=== PATIENT | female | born 1995 | race Caucasian/White ===

== ENCOUNTER 2017-05-04 03:35 | Emergency (ER) | payer BC, OTHER ==
[~2017-05-04] VITALS: Ht 167.6 cm; Wt 136.1 kg
[~2017-05-04 03:35] MED LIST: BIRTH CONTROL; CITA10TA PO; PRED10TA PO
--- OUTSIDE RECORDS SUMMARY | 2017-05-04 03:43 | XMS REPORT | Continuity of Care Document ---
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 Phone [employer] Unavailable Unavailable Problems Medications Medication Details Route Status Patient Instructions Ordering Provider Order Date Source Celexa 20 mg oral tablet PO Active [facility] 12/14/2013 [facility] BuSpar 10 mg oral tablet PO Active [facility] 12/14/2013 [facility] Flexeril 5 mg oral tablet Active one - two tablets at night prn for muscle tension STONE 12/21/2012 [facility] Ambien 5 mg oral tablet PO Active 1/2 - 1 at bedtime STONE 12/21/2012 [facility] Loestrin FE 1.5/30 oral tablet PO Active start on Friday12/07/2012 [facility] BuSpar 10 mg oral tablet PO Discontinued [facility] 11/25/2012 [facility] BuSpar 5 mg oral tablet PO Discontinued STONE 11/25/2012 [facility] Ambien 10 mg oral tablet PO Discontinued STONE 11/25/2012 [facility] Bactrim DS 800 mg-160 mg oral tablet PO Completed REMY 02/06/2012 [facility] Ambien 10 mg oral tablet PO Completed REMY 02/06/2012 [facility] Zoloft 50 mg oral tablet PO Completed REMY 02/06/2012 [facility] mouth piece for nebulizer Active as needed 01/21/2012 [facility] Supplies for nebulizer including tubing and mouth piece Discontinued as needed 01/20/2012 [facility] Xopenex 1.25 mg/3 mL inhalation solution NEB Active Please dispense with tubing. REMY 01/20/2012 [facility] Augmentin 875 mg oral tablet PO Completed REMY 01/20/2012 [facility] predniSONE 20 mg oral tablet Completed 3 tabs (60 mg) once daily days 1-3; 2 tabs (40 mg) once daily days 4-6: 1 tab (20 mg) daily days 7-9 BRYCE 12/12/2011 [facility] Loestrin FE 1.5/30 oral tablet PO Discontinued start on Federico STONE 11/15/2011 [facility] Loestrin FE 1.5/30 oral tablet PO Discontinued REMY 11/15/2011 [facility] predniSONE 20 mg oral tablet Completed start 09/20 3 TABS PO once daily days 1-2; 2 tabs po daily days 3-5; 1 tab once daily days 6- 8 BRYCE 09/20/2011 [facility] Mobic 15 mg oral tablet PO Completed REMY 08/13/2011 [facility] Xopenex 1.25 mg/3 mL inhalation solution NEB Completed REMY 02/11/2011 [facility] NEBULIZER with tubing and mouthpiece Completed use every 4-6 hrs prn. RMEY 02/11 [facility] Promethazine with Codeine oral syrup PO Completed REMY 02/11/2011 [facility] Augmentin 875 mg oral tablet PO Completed REMY 02/11/2011 [facility] Nyquil Cold & Flu oral capsule PO Completed 02/11/2011 [facility] predniSONE 20 mg oral tablet Completed 3 tabs daily for 3 days, 2 tabs daily for 3 days, 1 tab daily for 3 days REMY 08/31/2010 [facility] Medrol Dosepak 4 mg oral tablet Completed as directed on package labeling REMY [facility] Xopenex 1.25 mg/3 mL inhalation solution NEB Discontinued INFORMATION 01/16/2010 [facility] Xopenex HFA 45 mcg/inh inhalation aerosol with adapter INH Discontinued INFORMATION 01/16/2010 [facility] Veramyst 27.5 mcg/inh nasal spray each nostril Completed REMY 01/12/2010 [facility] Augmentin 875 mg oral tablet PO Completed REMY 01/12/2010 [facility] ibuprofen Discontinued 01/12/2010 [facility] amoxicillin 500 mg oral tablet PO Completed REMY 11/27/2009 [facility] Ciloxan 0.3% ophthalmic solution OS Completed REMY 11/27/2009 [facility] albuterol 90 mcg/inh inhalation aerosol with adapter INH Completed BRYCE 07/25/2008 [facility] Xopenex Concentrate Completed 07/14/2007 [facility] Pulmicort Respules Completed NEB 07/14/2007 [facility] Allergies, Adverse Reactions, Alerts Immunizations Immunization Date Given Site Status Last Updated Comments Source meningococcal conjugate vaccine 11/25/2012 Right Deltoid completed JUAN [facility] no immunization 11/25/2012 Immunization, History IN ERROR [facility] diphtheria/pertussis, acellular/tetanus 07/14/2007 Immunization, History completed [facility] Results Order Name Results Value Reference Range Date Interpretation Comments Source Office/Clinic Notes Office/Clinic Notes Patient: KATE SAGE Age: 18 years Sex: Female : 1995 Associated Diagnoses: None Author: Wendy Nunez, MICA Visit Information Visit type: New symptom. Accompanied by: No one. Source of history: Self. Chief Complaint Kate present today for medication consult and refills History of Present Illness The patient presents with medication consult and refills. Patient has noticed that her control has been changing through the pharmacy, pill packs are different color each month. During this time has noticed breakthrough bleeding consistently for the past few months. Typically has bleeding during the first and third weeks of her pill pack. Not currently sexually active. Stopped taking buspar May through August, felt like her anxiety got much worse. Started taking buspar again a few months ago and is struggling with associated nausea. Is still having some anxiety attacks with the buspar. Is happening twice per week. Anxiety improved since restarting the buspar, but still struggles. Review of Systems Constitutional: No fever, No chills, No weight gain, No weight loss. Respiratory: Negative. Cardiovascular: Negative. Gastrointestinal: Nausea, No vomiting. Gynecologic: Last menstrual period: 12/09/2013, Intermenstrual bleeding, has period twice per month usually for 1-2 days of spotting and other times will having bleeding for a full week, No vaginal discharge, Denies vaginal odor, Denies vaginal itching. Neurologic: Alert and oriented X4, No headache. Psychiatric: Anxiety, No depression. ROS reviewed as documented in chart Health Status Allergies: Allergic Reactions (All) Severity Not Documented Zithromax- Rash. Current medications: (Selected) Prescriptions Prescribed BuSpar 10 mg oral tablet: 1 Tab, PO, BID, 60 Tab Flexeril 5 mg oral tablet: See Instructions, one - two tablets at night prn for muscle tension, 30 Tab Loestrin FE 1.5/30 oral tablet: 1 Tab, PO, daily, PT NEEDS TO BE SEEN BY DR. NEGRO BEFORE ANY FURTHER REFILLS., 28 Tab Xopenex 1.25 mg/3 mL inhalation solution: 1.25 mg, 3 mL, NEB, TID, Please dispense with tubing., 1 BX mouth piece for nebulizer: See Instructions, as needed, 1 EA, BuSpar 10 mg oral tablet (buspirone), 10 mg, 2 times a day Flexeril 5 mg oral tablet (cyclobenzaprine), one - two tablets at night prn for muscle tension Loestrin FE 1.5/30 oral tablet (ethinyl estradiol-norethindrone), 1 Tab, Daily mouth piece for nebulizer (Miscellaneous Medication), as needed Xopenex 1.25 mg/3 mL inhalation solution (Resp-Levalbuterol), 1.25 mg, 3 times a day Problem list: Medical Obesity / ICD-9-CM 278.00 / Confirmed Insomnia / ICD-9-CM 780.52 / Confirmed Anxiety - Generalized Disorder / ICD-9-CM 300.02 / Confirmed Histories Past Medical History: No active or resolved past medical history items have been selected or recorded. Family History: Family History Negative: Procedure History: Arthroscopy, shoulder, surgical; debridement, limited (34439) in 2009 at 14 Years. Social History Alcohol Use Alcohol Use: Denies Caffeine Use Caffeine Use: Current Caffeine Frequency: Weekly Current Tobacco Usage: Denies Education: High school Recreational Drug Use Recreational Drug Use: Denies . Physical Examination VS/Measurements Vital Signs 12/14/13 11:28 Temperature Tympanic 36.4 DegC LOW Peripheral Pulse Rate 62 bpm Respiratory Rate 20 br/min Systolic Blood Pressure 112 mmHg Diastolic Blood Pressure 82 mmHg Mean Arterial Pressure. 92 mmHg Blood Pressure Type Manual Blood Pressure Location Left arm , Measurements from flowsheet : Measurements 12/14/13 11:28 Height 170 cm Weight 106.9 kg Scale Balance BSA 2.2468 m2 Body Mass Index 37 kg/m2 BMI Percentile 97.95 General: Alert and oriented, No acute distress. Appearance: Within normal limits. Behavior: Within normal limits. Skin: Within normal limits. Eye: Pupils are equal, round and reactive to light, Normal conjunctiva. HENT: Normocephalic, Tympanic membranes are clear, Oral mucosa is moist, No pharyngeal erythema. Neck: Supple, Non-tender, No lymphadenopathy. Respiratory: Lungs are clear to auscultation, Respirations are non-labored, Breath sounds are equal, Symmetrical chest wall expansion. Cardiovascular: Normal rate, Regular rhythm. Gastrointestinal: Soft, Non-tender, Non-distended, Normal bowel sounds. Integumentary: Warm, Dry, [place], No rash. Psychiatric: Cooperative, Appropriate mood & affect. Review / Management Results review: Lab results: 12/14/2013 12:05 U beta hCG Ql Negative . Impression and Plan Diagnosis Contraceptive management (ICD9 V25.9). Breakthrough bleeding on control pills (ICD9 626.6). Anxiety (ICD9 300.00). Course: Not improving. Orders Orders (Selected) Prescriptions Prescribed BuSpar 10 mg oral tablet: 1 Tab, PO, BID, 60 Tab Celexa 20 mg oral tablet: 1 Tab, PO, daily, 30 Tab Ortho Tri-Cyclen 35 mcg oral tablet: 1 Tab, PO, daily, 28 Tab. Change contraception pill to see if improvement in breakthrough bleeding. Start on SSRI to help with anxiety, may consider cutting back on buspar as patient struggling with nausea since restarting the medication. Also discussed using SSRI in addition to buspar for better control of anxiety - will see if nausea improves. Follow up in 1 month. Counseled: Patient, Regarding diagnosis, Regarding treatment, Regarding medications. Patient Instructions: Patient in agreement with plan, will follow up sooner with any persistent or worsening symptoms. [Electronically Signed on 12.15.2013 10:09 PM]
Wendy Nunez APRN
</br> 12/14/2013 [Electronically Signed on 12.15.2013 10:09 PM] Wendy Nunez APRN [facility] Office/Clinic Notes Office/Clinic Notes Patient: KATE SAGE Age: 18 years Sex: Female : [birth year] Associated Diagnoses: None Author: Vaishnavi Berry Visit Information Visit type: New symptom. Accompanied by: No one. Source of history: Self. Chief Complaint Kate present today for medication consult and refills History of Present Illness The patient presents with medication consult and refills. Review of Systems Gastrointestinal: Nausea. ROS reviewed as documented in chart No qualifying data available. Health Status Allergies: Allergic Reactions (All) Severity Not Documented Zithromax- Rash. Current medications: (Selected) Prescriptions Prescribed BuSpar 10 mg oral tablet: 1 Tab, PO, BID, 60 Tab Flexeril 5 mg oral tablet: See Instructions, one - two tablets at night prn for muscle tension, 30 Tab Loestrin FE 1.5/30 oral tablet: 1 Tab, PO, daily, PT NEEDS TO BE SEEN BY DR. NEGRO BEFORE ANY FURTHER REFILLS., 28 Tab Xopenex 1.25 mg/3 mL inhalation solution: 1.25 mg, 3 mL, NEB, TID, Please dispense with tubing., 1 BX mouth piece for nebulizer: See Instructions, as needed, 1 EA, BuSpar 10 mg oral tablet (buspirone), 10 mg, 2 times a day Flexeril 5 mg oral tablet (cyclobenzaprine), one - two tablets at night prn for muscle tension Loestrin FE 1.5/30 oral tablet (ethinyl estradiol-norethindrone), 1 Tab, Daily mouth piece for nebulizer (Miscellaneous Medication), as needed Xopenex 1.25 mg/3 mL inhalation solution (Resp-Levalbuterol), 1.25 mg, 3 times a day Problem list: Medical Obesity / ICD-9-CM 278.00 / Confirmed Anxiety - Generalized Disorder / ICD-9-CM 300.02 / Confirmed Insomnia / ICD-9-CM 780.52 / Confirmed Histories Past Medical History: No active or resolved past medical history items have been selected or recorded. Family History: Family History Negative: Procedure History: Arthroscopy, shoulder, surgical; debridement, limited (51261) in 2009 at 14 Years. Social History Alcohol Use Alcohol Use: Denies Caffeine Use Caffeine Use: Current Caffeine Frequency: Weekly Current Tobacco Usage: Denies Education: High school Recreational Drug Use Recreational Drug Use: Denies . Physical Examination VS/Measurements Vital Signs 12/14/13 11:28 Temperature Tympanic 36.4 DegC LOW Peripheral Pulse Rate 62 bpm Respiratory Rate 20 br/min Systolic Blood Pressure 112 mmHg Diastolic Blood Pressure 82 mmHg Mean Arterial Pressure. 92 mmHg Blood Pressure Type Manual Blood Pressure Location Left arm , Measurements from flowsheet : Measurements 12/14/13 11:28 Height 170 cm Weight 106.9 kg Scale Balance BSA 2.2468 m2 Body Mass Index 37 kg/m2 BMI Percentile 97.95 General: No qualifying data available. . 12/14/2013 [facility] Depression Screening Grid 1 Depression Screening Grid 1 No [id number] No 12/14/2013 [facility] SMEG-Healthcare Goals 1 SMEG-Healthcare Goals 1 No [id number] No [id number] Yes CD:[id number] Yes CD:[id number] No CD:[id number] No CD:[id number] No CD:[id number] No CD:[id number] No CD:[id number] No 12/14/2013 [facility] Level of Functioning Grid-Clinic Level of Functioning Grid-Clinic 12/14/2013 [facility] Office/Clinic Notes Office/Clinic Notes Patient: KATE SAGE Age: 17 years Sex: Female : 1995 Associated Diagnoses: None Author: Yessica Negro DO Visit Information Visit type: New symptom. Accompanied by: No one. Source of history: Self. Chief Complaint Patiet presents with headache. History of Present Illness The patient presents with insomnia. The onset was has been going on for awhile now.. There were exacerbating factors including nothing making it worse.. There were relieving factors including medication (buspar.). It is characterized by 9 of hours sleep per night, difficulty falling asleep, fatigue upon awakening, no difficulty remaining asleep, no difficulty staying awake during the day and not interrupted sleep. The symptom occurs constantly. The course is worsening. The effect on daily activities is no change in activity level, no change in eating habits and no change in work/school duties. Associated symptoms no fatigue, no anxiety, no decreased attention span, no depression, no irritability no stress. The patient presents with headache. The location is the right side of the head (pain moves form the lower back of the head to the right zoroastrianism. Patient has had 4-5 in last week.). The onset was sudden. The duration is 3-4 months and are becoming more frequent.. There were relieving factors including has not noticed anything that triggers her heaaches.. It is described as pounding. Radiation to the right side of the neck. The severity is moderate. The symptom occurs constantly. The course is worsening. The effect on daily activities is no change in activity level, no change in sleeping patterns and no change in work/school duties. Associated symptoms dizziness, no eye pain, no nausea no vomiting. Melatonin did not help Review of Systems Constitutional: Negative. Eye: Negative. Ear/Nose/Mouth/Throat: Nasal congestion. Respiratory: Negative. Cardiovascular: Negative. Gastrointestinal: Negative. Genitourinary: Negative. Hematology/Lymphatics: Negative. Endocrine: Negative. Immunologic: Negative. Musculoskeletal: Negative. Integumentary: Negative. Neurologic: Headache. Psychiatric: Negative. Health Status Allergies: . Allergic Reactions (Selected) Severity Not Documented Zithromax- Rash. Current medications: (Selected). Prescriptions Ordered Ambien 5 mg oral tablet: 1 Tab, PO, AT BEDTIME, 1/2 - 1 at bedtime, 30 Tab BuSpar 10 mg oral tablet: 1 Tab, PO, BID, 60 Tab Flexeril 5 mg oral tablet: See Instructions, one - two tablets at night prn for muscle tension, 30 Tab Loestrin FE 1.5/30 oral tablet: 1 Tab, PO, daily, start on Friday, 28 Tab Xopenex 1.25 mg/3 mL inhalation solution: 1.25 mg, 3 mL, NEB, TID, Please dispense with tubing., 1 BX mouth piece for nebulizer: See Instructions, as needed, 1 EA Problem list: . All Problems ASTHMA / Confirmed Histories Past Medical History: . No active or resolved past medical history items have been selected or recorded. Family History: . Cardiovascular Past Medical History High Blood Pressure Medical History: Mother, FAM HX HTN Endocrine/Metabolic Past Med Hx Diabetes Medical History: Grandparents Endocrine, Other Medical History: Mother, Hypothyroid Family Status Father: Living Mother: Living Paternal Grandfather: Paternal Grandmother: Living Maternal Grandfather: Living Maternal Grandmother: Living Brother 1: Living Neurological Past Medical History Neurological, Other Medical History: Grandparents, Stroke Family Status Reviewed With Patient: Review complete Procedure History: . Arthroscopy, shoulder, surgical; debridement, limited (86904) in 2010 at 14 Years. Social History . Alcohol Use Alcohol Use: Not applicable due to age Current Tobacco Usage: Denies Education: High school Physical Examination VS/Measurements VITAL SIGNS 12/21/2012 10:47 Temperature Tympanic 36.3 DegC LOW Peripheral Pulse Rate 85 bpm Respiratory Rate 18 br/min Systolic Blood Pressure 120 mmHg Diastolic Blood Pressure 80 mmHg Mean Arterial Pressure. 93.33 mmHg Blood Pressure Type Manual Blood Pressure Location Left arm , Measurements from flowsheet : Measurements 12/21/2012 10:47 Height 170 cm Weight 107.2 kg Scale Balance BSA 2.2499 m2 Body Mass Index 37.1 kg/m2 General: Alert and oriented, No acute distress. Eye: Pupils are equal, round and reactive to light, Normal conjunctiva. HENT: Normocephalic, Tympanic membranes are clear, Oral mucosa is moist, No pharyngeal erythema, No sinus tenderness. Neck: Supple, Non-tender, No lymphadenopathy, No thyromegaly. Respiratory: Lungs are clear to auscultation, Respirations are non-labored, Breath sounds are equal. Cardiovascular: Normal rate, Regular rhythm, No murmur, No edema. Gastrointestinal: Soft, Non-tender, Non-distended, Normal bowel sounds. Musculoskeletal: muscle tension on trapezius muscles - mod-severe and exacerbate pain of where headaches are with palpation. Integumentary: Warm, Dry, [place], No rash. Neurologic: Alert, Oriented, No focal defects. Psychiatric: Cooperative, Appropriate mood & affect, Normal judgment. Impression and Plan Diagnosis Obesity (ICD9 278.00). Insomnia (ICD9 780.52). Chronic tension headaches (ICD9 339.12). Anxiety - Generalized Disorder (ICD9 300.02). Course: Progressing as expected. Plan [facility]. Pharmacy: Ambien 5 mg oral tablet (Ordered): 1 Tab, PO, AT BEDTIME, 1/2 - 1 at bedtime, 30 Tab [facility]. Pharmacy: Flexeril 5 mg oral tablet (Ordered): See Instructions, one - two tablets at night prn for muscle tension, 30 Tab will cont with buapar has helped will trial new meds and see how things progress . time with patient greater than 30 min. Plan [facility]. Evaluation and Management: Office Visit Level 4 Est - 21301 (Completed): 12/21/2012 5:54 Counseled: Patient. Patient Instructions: Patient was in agreement with plan and instructed to follow up if no improvement or worsening of symptoms. . [Electronically Signed on 12.25.2012 05:55 AM]
Yessica Negro, DO
</br> 12/21/2012 [Electronically Signed on 12.25.2012 05:55 AM] Yessica Negro, DO [facility] Office/Clinic Notes Office/Clinic Notes Patient: KATE SAGE Age: 17 years Sex: Female : 1995 Associated Diagnoses: None Author: Deya Lopez Visit Information Visit type: New symptom. Accompanied by: No one. Source of history: Self. Chief Complaint Patiet presents with headache. History of Present Illness The patient presents with insomnia. The onset was has been going on for awhile now.. There were exacerbating factors including nothing making it worse.. There were relieving factors including medication (buspar.). It is characterized by 9 of hours sleep per night, difficulty falling asleep, fatigue upon awakening, no difficulty remaining asleep, no difficulty staying awake during the day and not interrupted sleep. The symptom occurs constantly. The course is worsening. The effect on daily activities is no change in activity level, no change in eating habits and no change in work/school duties. Associated symptoms no fatigue, no anxiety, no decreased attention span, no depression, no irritability no stress. The patient presents with headache. The location is the right side of the head (pain moves form the lower back of the head to the right zoroastrianism. Patient has had 4-5 in last week.). The onset was sudden. The duration is 3-4 months and are becoming more frequent.. There were relieving factors including has not noticed anything that triggers her heaaches.. It is described as pounding. Radiation to the right side of the neck. The severity is moderate. The symptom occurs constantly. The course is worsening. The effect on daily activities is no change in activity level, no change in sleeping patterns and no change in work/school duties. Associated symptoms dizziness, no eye pain, no nausea no vomiting. Review of Systems Constitutional: Negative. Respiratory: Negative. Cardiovascular: Negative. Gastrointestinal: Negative. Neurologic: Headache. Health Status Allergies: . Allergic Reactions (Selected) Severity Not Documented Zithromax- Rash. Histories Past Medical History: . No active or resolved past medical history items have been selected or recorded. Family History: . Cardiovascular Past Medical History High Blood Pressure Medical History: Mother, FAM HX HTN Endocrine/Metabolic Past Med Hx Diabetes Medical History: Grandparents Endocrine, Other Medical History: Mother, Hypothyroid Family Status Father: Living Mother: Living Paternal Grandfather: Paternal Grandmother: Living Maternal Grandfather: Living Maternal Grandmother: Living Brother 1: Living Neurological Past Medical History Neurological, Other Medical History: Grandparents, Stroke Family Status Reviewed With Patient: Review complete Procedure History: . Arthroscopy, shoulder, surgical; debridement, limited (17477) in 2009 at 14 Years. Social History . Alcohol Use Alcohol Use: Not applicable due to age Current Tobacco Usage: Denies Education: High school Physical Examination VS/Measurements VITAL SIGNS 12/21/2012 10:47 Temperature Tympanic 36.3 DegC LOW Peripheral Pulse Rate 85 bpm Respiratory Rate 18 br/min Systolic Blood Pressure 120 mmHg Diastolic Blood Pressure 80 mmHg Mean Arterial Pressure. 93.33 mmHg Blood Pressure Type Manual Blood Pressure Location Left arm 12/21/2012 [facility] INSULIN Insulin Level. 12.69 mIU/mL 1.90 - 23.00 2012 N [facility] A1C eAverage Glu 111 11/26/2012 NA Estimated average glucose has a linear relationship with Hgb A1C and is intended to simplify the discussion of glycemic control with patients.
[facility] CHEM12 eGFR >60 mL/min >=60 11/26/2012 N Estimated eGFR Non calculated using MDRD study equation Result Verified by Discern Expert.
The MDRD GFR formula is valid only for adults between 18 and 85 years of age.
[facility] P7 LDLC 53 60 - 99 11/26/2012 LOW [facility] CHEM12 Albumin Level 3.5 gm/ dL 3.8 - 5.6 11/26/2012 LOW [facility] P7 non-HDL Cholesterol 80 mg/ dL 90 - 129 11/26/2012 LOW [facility] TSH TSH 3.700 uIU/mL 0.358 - 3.740 11/26/2012 N [facility] -RBC Morphology RBC Morph Normal Normal 11/26/2012 N Discern Expert
[facility] -Auto Diff Abs [place] .5 x10^3/ uL .0 - .9 11/26/2012 N [facility] CBC with Diff RBC 4.66 x10^6/ uL 4.20 - 5.40 11/26/2012 N [facility] Office/Clinic Notes Office/Clinic Notes Patient: KATE SAGE Age: 17 years Sex: Female : 1995 Associated Diagnoses: None Author: Yessica Negro DO Visit Information Visit type: New symptom. Accompanied by: No one. Source of history: Self. Chief Complaint Patient presents with anxiety and insomnia. Patient wants blood for AC1- and regular labs. History of Present Illness The patient presents with insomnia. The onset was gradual. There were exacerbating factors including stress. There were relieving factors including medication. It is characterized by difficulty falling asleep, difficulty remaining asleep, difficulty staying awake during the day, fatigue upon awakening and interrupted sleep. The symptom occurs constantly. The course is worsening. The effect on daily activities is no change in activity level and no change in eating habits. Associated symptoms fatigue, anxiety, depression irritability, no decreased attention span. The patient presents with anxiety. The onset was sudden. The duration is 8 months. There were exacerbating factors including not crowded areas and not stress. There were relieving factors including medication. It is described as irritability, restlessness, no difficulty concentrating, no fear and no nervousness. The symptom occurs constantly. The course is worsening. The effect on daily activities is change in activity level and change in sleeping patterns. Associated symptoms insomnia depression. Interval History Diabetes, Type 2 Glucose results fluctuating. Review of Systems Constitutional: Negative. Respiratory: Negative. Cardiovascular: Negative. Gastrointestinal: Negative. Genitourinary: Urinary frequency. Musculoskeletal: Negative. Neurologic: Alert and oriented X4. Psychiatric: Anxiety, Depression. All other systems reviewed negative Health Status Allergies: . Allergic Reactions (Selected) Severity Not Documented Zithromax- Rash. Current medications: (Selected). Prescriptions Ordered BuSpar 10 mg oral tablet: 1 Tab, PO, BID, 60 Tab Loestrin FE 1.5/30 oral tablet: 1 Tab, PO, daily, start on Friday, 28 Tab Xopenex 1.25 mg/3 mL inhalation solution: 1.25 mg, 3 mL, NEB, TID, Please dispense with tubing., 1 BX mouth piece for nebulizer: See Instructions, as needed, 1 EA Histories Past Medical History: . No active or resolved past medical history items have been selected or recorded. Family History: . Cardiovascular Past Medical History High Blood Pressure Medical History: Mother, FAM HX HTN Endocrine/Metabolic Past Med Hx Diabetes Medical History: Grandparents Endocrine, Other Medical History: Mother, Hypothyroid Family Status Father: Living Mother: Living Paternal Grandfather: Paternal Grandmother: Living Maternal Grandfather: Living Maternal Grandmother: Living Brother 1: Living Neurological Past Medical History Neurological, Other Medical History: Grandparents, Stroke Family Status Reviewed With Patient: Review complete Procedure History: . Arthroscopy, shoulder, surgical; debridement, limited (72805) in 2009 at 14 Years. Social History . Alcohol Use Alcohol Use: Not applicable due to age Current Tobacco Usage: Denies Education: High school Physical Examination VS/Measurements VITAL SIGNS 11/25/2012 16:26 Temperature Tympanic 37.0 DegC Peripheral Pulse Rate 95 bpm Respiratory Rate 18 br/min Systolic Blood Pressure 126 mmHg Diastolic Blood Pressure 82 mmHg Mean Arterial Pressure. 96.67 mmHg Blood Pressure Type Manual Blood Pressure Location Left arm , Measurements from flowsheet : Measurements 11/25/2012 16:26 Height 170 cm Weight 107.5 kg Scale Balance BSA 2.2531 m2 Body Mass Index 37.2 kg/m2 General: Alert and oriented, No acute distress. HENT: Normocephalic, Tympanic membranes are clear, No pharyngeal erythema, No sinus tenderness. Neck: Supple, Non-tender, No lymphadenopathy, No thyromegaly. Respiratory: Lungs are clear to auscultation, Respirations are non-labored, Breath sounds are equal. Cardiovascular: Normal rate, Regular rhythm, No murmur, Normal peripheral perfusion, No edema. Gastrointestinal: Soft, Non-tender, Non-distended, Normal bowel sounds. Musculoskeletal: Normal range of motion, Normal strength. Integumentary: Warm, Dry, [place]. Neurologic: Alert, Oriented. Psychiatric: Cooperative, Appropriate mood & affect. Mood and affect: Anxious. Impression and Plan Diagnosis Insomnia (ICD9 780.52). Screening for Endocrine, Nutritional, Metabolic and Immunity Disorder (ICD9 V77.99). Urinary Frequency (ICD9 788.41). Anxiety (ICD9 300.00). Depression (ICD9 311). Course: Worsening. Plan Order Profile (Selected). Outpatient Orders Ordered Office-Clinic: Completed Menactra, Meningococcal Vaccine -Clinic: meningococcal conjugate vaccine: 0.5 mL, IM, X 1 DOSE Future CBC with Diff: Chemistry Profile: HgbA1C: Insulin Level: Panel 7 (Lipid Panel): Thyroid Stimulating Hormone: Office-Clinic: Prescriptions Ordered BuSpar 10 mg oral tablet: 1 Tab, PO, BID, 60 Tab Discontinued Ambien 10 mg oral tablet: 1 Tab, PO, AT BEDTIME, 30 Tab return prior to going to college to see how medication change is doing d/w them using otc melatonin d/w them good sleep hygiene . Plan PowerOrders. Evaluation and Management: Office Visit Level 4 Est - 51913 (Completed): 11/25/2012 6:32 Counseled: Patient, Family, Regarding diagnosis, Regarding medications, Diet, Activity. Patient Instructions: DEPRESSION, Depression Affects Your Mind and Body, Depression: Tips to Help Yourself, ANXIETY REACTION. [Electronically Signed on 11.26.2012 06:32 AM]
Yessica Negro DO
</br> 11/25/2012 [Electronically Signed on 11.26.2012 06:32 AM] Yessica Negro DO [facility] Ambulatory Depart Summary Ambulatory Depart Summary [address] [place] [address] PERSON INFORMATION Name KATE SAGE Age 17 Years 1995 Sex Female Language Finnish PCP Yessica Negro DO Marital Status Single Time Zone N [id number] Visit Id Visit Reason EST PCP FROM [facility] Specialty Enc Type [facility] Med Service PHYSOFF-Physician Office Referred by [facility] Discharge Process Discharge Tracking Id Checkout Checkin Acuity Dispo Type Arrival 11/25/2012 3:56 PM Reg Status LOS Address: [address] [facility] [address] PHYS DOC NOTES PROVIDER INFORMATION VITALS INFORMATION Height: 5ft 6.9in Weight: 237.00 lbs (BMI: 37.2) Temp: 98.6 F Heart Rate: 95 Respiratory: 18 O2 Sat: 98 BP: 126/82 LOCATION INFORMATION Arrival Nurse Unit Room Bed ORDERS INFORMATION Start Time Order Type Status Stop Time Provider 11/25/2012 5:17 PM [facility] - 1 Day Laboratory Ordered 11/25/2012 5:17 PM Yessica Negro DO 11/25/2012 5:06 PM Menactra Meningococcal Vaccine Careset -Clinic Clinic Careset Ordered 11/25/2012 5:06 PM Yessica Negro DO 11/25/2012 5:04 PM Menactra, Meningococcal Vaccine -Clinic Clinic Charge Ordered 11/25/2012 5:04 PM Yessica Negro DO 11/25/2012 5:03 PM First Vaccine, Immunization Admin -Clinic Clinic Charge Ordered 11/25/2012 5:03 PM Yessica Negro DO 11/25/2012 5:00 PM GHP Laboratory Discontinued 11/25/2012 5:17 PM Yessica Negro DO 11/25/2012 5:00 PM CBC with Diff Laboratory Discontinued 11/25/2012 5:14 PM Yessica Negro DO 11/25/2012 5:00 PM Chemistry Profile Laboratory Discontinued 11/25/2012 5:14 PM Yessica Negro DO 11/25/2012 5:00 PM Thyroid Stimulating Hormone Laboratory Discontinued 2012 5:15 PM Yessica Negro DO 11/25/2012 4:59 PM UA Office-Clinic Patient Care -Clinic Ordered 11/25/2012 4:59 PM Yessica Negro DO MEDICAL INFORMATION Allergy Info: Zithromax HOME MEDICATIONS BuSpar 5 mg oral tablet 5 mg, Oral, 3 times a day, 30 Day(s), Routed to: [facility] [place] FE 1.5/30 oral tablet 1 Tab, Oral, Daily, 28 Day(s), 11 Refills, start on Friday mouth piece for nebulizer See Instructions, as needed Xopenex 1.25 mg/3 mL inhalation solution 1.25 mg, Nebulized inhalation, 3 times a day, 30 Day(s), 2 Refills, Please dispense with tubing. DISCHARGE INFORMATION Discharge Disposition: Discharge Location: PATIENT EDUCATION INFORMATION Instructions: DEPRESSION; Depression Affects Your Mind and Body; Depression: Tips to Help Yourself; ANXIETY REACTION Follow up: DIAGNOSIS 11/25/2012 [facility] Medical Student Note Medical Student Note Patient: KATE SAGE Age: 17 years Sex: Female : 1995 Associated Diagnoses: None Author: Shane Lee SNP Visit Information Visit type: New symptom. Accompanied by: No one. Source of history: Self. Chief Complaint Patient presents with anxiety and insomnia. Patient wants blood for AC1- and regular labs. History of Present Illness Kate is an 17 year old who is going off to college this fall and her mother and she both have concerns about Kate's level of anxiety. She was previously on Zoloft, which was working well, however the pt ended up being evaluated at [facility] due to heart palpitations and was determined to have QT prolongation which subsequently stopped the Zoloft. She has since been cleared by cardiology. She also has had her blood sugar checked a few times during the last year in and it was always very low, and acocompanied by dizziness. Her mother would like her to have a full work up prior to college starting as well as receive the menactra vaccination. The patient presents with insomnia. The onset was gradual. There were exacerbating factors including stress. There were relieving factors including medication. It is characterized by difficulty falling asleep, difficulty remaining asleep, difficulty staying awake during the day, fatigue upon awakening and interrupted sleep. The symptom occurs constantly. The course is worsening. The effect on daily activities is no change in activity level and no change in eating habits. Associated symptoms fatigue, anxiety, depression irritability, no decreased attention span. The patient presents with anxiety. The onset was sudden. The duration is 8 months. There were exacerbating factors including not crowded areas and not stress. There were relieving factors including medication. It is described as irritability, restlessness, no difficulty concentrating, no fear and no nervousness. The symptom occurs constantly. The course is worsening. The effect on daily activities is change in activity level and change in sleeping patterns. Associated symptoms insomnia depression. Interval History Diabetes, Type 2 Glucose results fluctuating. Review of Systems Constitutional: Negative. Respiratory: Negative. Cardiovascular: Negative. Gastrointestinal: Negative. Genitourinary: Urinary frequency. Musculoskeletal: Negative. Neurologic: Alert and oriented X4. Psychiatric: Anxiety, Depression. Health Status Allergies: . Allergic Reactions (Selected) Severity Not Documented Zithromax- Rash. Current medications: (Selected). Prescriptions Ordered Loestrin FE 1.5/30 oral tablet: 1 Tab, PO, daily, start on Friday, Tab Xopenex 1.25 mg/3 mL inhalation solution: 1.25 mg, 3 mL, NEB, TID, Please dispense with tubing., 1 BX mouth piece for nebulizer: See Instructions, as needed, 1 EA Histories Past Medical History: . No active or resolved past medical history items have been selected or recorded. Family History: . Cardiovascular Past Medical History High Blood Pressure Medical History: Mother, FAM HX HTN Endocrine/Metabolic Past Med Hx Diabetes Medical History: Grandparents Endocrine, Other Medical History: Mother, Hypothyroid Family Status Father: Living Mother: Living Paternal Grandfather: Paternal Grandmother: Living Maternal Grandfather: Living Maternal Grandmother: Living Brother 1: Living Neurological Past Medical History Neurological, Other Medical History: Grandparents, Stroke Family Status Reviewed With Patient: Review complete Procedure History: . Arthroscopy, shoulder, surgical; debridement, limited (81812) in 2009 at 14 Years. Social History . Alcohol Use Alcohol Use: Not applicable due to age Current Tobacco Usage: Denies Education: High school Physical Examination VS/Measurements VITAL SIGNS 11/25/2012 16:26 Temperature Tympanic 37.0 DegC Peripheral Pulse Rate 95 bpm Respiratory Rate 18 br/min Systolic Blood Pressure 126 mmHg Diastolic Blood Pressure 82 mmHg Mean Arterial Pressure. 96.67 mmHg Blood Pressure Type Manual Blood Pressure Location Left arm General: Alert and oriented, No acute distress. HENT: Normocephalic, Tympanic membranes are clear. Neck: Supple, Non-tender. Respiratory: Lungs are clear to auscultation, Respirations are non-labored. Cardiovascular: Normal rate, Regular rhythm. Gastrointestinal Musculoskeletal: Normal range of motion, Normal strength. Integumentary: Warm, Dry, [place]. Neurologic: Alert, Oriented. Psychiatric: Cooperative, Appropriate mood & affect. Mood and affect: Anxious. Impression and Plan Diagnosis Insomnia (ICD9 780.52). Screening for Endocrine, Nutritional, Metabolic and Immunity Disorder (ICD9 V77.99). Urinary Frequency (ICD9 788.41). Anxiety (ICD9 300.00). Depression (ICD9 311). Course: Worsening. Plan PowerOrders. Laboratory: [facility] (Ordered) CBC with Diff (Ordered): 11/25/2012 16:57, Routine collect, Screening for Endocrine, Nutritional, Metabolic and Immunity Disorder, [facility] Chemistry Profile (Ordered): 11/25/2012 16:57, Routine collect, Screening for Endocrine, Nutritional, Metabolic and Immunity Disorder, [facility] Thyroid Stimulating Hormone (Ordered): 11/25/2012 16:57, Routine collect, Urinary Frequency, [facility] Patient Care -Clinic: Office-Clinic (Ordered): 11/25/2012 16:59, HC, Screening for Endocrine, Nutritional, Metabolic and Immunity Disorder PowerOrders. Pharmacy: Ambien 10 mg oral tablet (Ordered): 1 Tab, PO, AT BEDTIME, 30 Tab PowerOrders. Clinic Charge: Menactra, Meningococcal Vaccine -Clinic (Ordered): 11/25/2012 17:04 First Vaccine, Immunization Admin -Clinic (Ordered): 11/25/2012 17:03 Clinic Careset: Menactra Meningococcal Vaccine Careset -Clinic (Ordered) PowerOrders. Laboratory: HgbA1C (Future): 11/26/2012 8:00, Routine collect, Screening for Endocrine, Nutritional, Metabolic and Immunity Disorder, Order for future visit, [facility] Panel 7 (Lipid Panel) (Future): 11/26/2012 8:00, Routine collect, Screening for Endocrine, Nutritional, Metabolic and Immunity Disorder, Order for future visit , [facility] GHP - 1 Day (Ordered) CBC with Diff (Future): 11/26/2012 8:00, Routine collect, Screening for Endocrine , Nutritional, Metabolic and Immunity Disorder, Order for future visit, [facility] Chemistry Profile (Future): 11/26/2012 8:00, Routine collect, Screening for Endocrine, Nutritional, Metabolic and Immunity Disorder, Order for future visit , [facility] Thyroid Stimulating Hormone (Future): 11/26/2012 8:00, Routine collect, Screening for Endocrine, Nutritional, Metabolic and Immunity Disorder, Order for future visit, [facility] Pharmacy: BuSpar 5 mg oral tablet (Ordered): 1 Tab, PO, TID, 90 Tab PowerOrders. Pharmacy: Ambien 10 mg oral tablet (Discontinued): 1 Tab, PO, AT BEDTIME, 30 Tab Counseled: Patient, Regarding diagnosis, Regarding medications, Diet, Activity. Patient Instructions: DEPRESSION, Depression Affects Your Mind and Body, Depression: Tips to Help Yourself, ANXIETY REACTION. 11/25/2012 [facility] SMEG-Healthcare Goals 1 SMEG-Healthcare Goals 1 No [id number] No CD:[id number] Yes CD:[id number] Yes CD:[id number] No CD:[id number] No CD:[id number] No CD:[id number] No CD:[id number] No CD:[id number] No 11/25/2012 [facility] Level of Functioning Grid-Clinic Level of Functioning Grid-Clinic 11/25/2012 [facility] Office/Clinic Notes Office/Clinic Notes Patient: KATE SAGE Age: 17 years Sex: Female : 1995 Associated Diagnoses: None Author: Deya Lopez Visit Information Visit type: New symptom. Accompanied by: No one. Source of history: Self. Chief Complaint Patient presents with anxiety and insomnia. Patient wants blood for AC1- and regular labs. History of Present Illness The patient presents with insomnia. The onset was gradual. There were exacerbating factors including stress. There were relieving factors including medication. It is characterized by difficulty falling asleep, difficulty remaining asleep, difficulty staying awake during the day, fatigue upon awakening and interrupted sleep. The symptom occurs constantly. The course is worsening. The effect on daily activities is no change in activity level and no change in eating habits. Associated symptoms fatigue, anxiety, depression irritability, no decreased attention span. The patient presents with anxiety. The onset was sudden. The duration is 8 months. There were exacerbating factors including not crowded areas and not stress. There were relieving factors including medication. It is described as irritability, restlessness, no difficulty concentrating, no fear and no nervousness. The symptom occurs constantly. The course is worsening. The effect on daily activities is change in activity level and change in sleeping patterns. Associated symptoms insomnia depression. Interval History Diabetes, Type 2 Glucose results fluctuating. Review of Systems Constitutional: Negative. Respiratory: Negative. Cardiovascular: Negative. Gastrointestinal: Negative. Neurologic: Negative. Health Status Allergies: . Allergic Reactions (Selected) Severity Not Documented Zithromax- Rash. Current medications: (Selected). Prescriptions Ordered Loestrin FE 1.5/30 oral tablet: 1 Tab, PO, daily, start on Friday, Tab Xopenex 1.25 mg/3 mL inhalation solution: 1.25 mg, 3 mL, NEB, TID, Please dispense with tubing., 1 BX mouth piece for nebulizer: See Instructions, as needed, 1 EA Histories Past Medical History: . No active or resolved past medical history items have been selected or recorded. Family History: . Cardiovascular Peds History High Blood Pressure Medical History: Mother, FAM HX HTN Endocrine/Metabolic Past Med Hx Diabetes Medical History: Grandparents Endocrine, Other Medical History: Mother, Hypothyroid Neurological Peds Health History Neurological, Other Medical History: Grandparents, Stroke Oncologic Peds Health History Non-Hodgkin's Lymphoma Health Hx: Mother Procedure History: . Arthroscopy, shoulder, surgical; debridement, limited (48087) in 2009 at 14 Years. Social History . Alcohol Use Alcohol Use: Not applicable due to age Current Tobacco Usage: Denies Physical Examination VS/Measurements VITAL SIGNS 11/25/2012 16:26 Temperature Tympanic 37.0 DegC Peripheral Pulse Rate 95 bpm Respiratory Rate 18 br/min Systolic Blood Pressure 126 mmHg Diastolic Blood Pressure 82 mmHg Mean Arterial Pressure. 96.67 mmHg Blood Pressure Type Manual Blood Pressure Location Left arm 11/25/2012 [facility] Ambulatory Depart Summary Ambulatory Depart Summary <%UDTHART_CLINIC_HEADER_UDT%>[facility] [address] [place] [id number] <%END%> PERSON INFORMATION Sex <%GENDER%>Female<%END%> Language <%LANGUAGE%>Finnish<%END%> PCP <%PCP%>Remy, Irish O, DO<%END%> Marital Status <%MARITALSTAT%>Single<%END%> Phone <%PHONE%> <%END%> Time Zone <%TIMEZONE%><%END%> MRN <%ALIASPMRN%>[id number]<%END%> Visit Id <%ALIASEVISITID%><%END%> Acct# <%ALIASEFIN NBR%>[id number]<%END%> Visit Reason <%RFV%>DEPRESSION.CRYING SPELLS.BC<%END%> Specialty <%SPECIALTY%><%END%> Enc Type <%ENCNTRTYPE%>[facility]<%END%> Med Service <%MEDSERVICE%>PHYSOFF-Physician Office<%END%> Referred by <%REFERREDBY%><%END%> Track Group <%TRACKGROUP%>Clinic Discharge Process<%END%> Discharge <%DISCHDTTM%><%END%> Tracking Id <%TRACKINGID%><%END%> Checkout <%CHECKOUTDTTM%><%END%> Checkin <%CHECKINDTTM%><%END%> Acuity <%ACUITY%><%END%> Dispo Type <%DISDISP%><%END%> Arrival <%ARRIVALDTTM%>02/06/2012 3:42 PM<%END%> Reg Status <%REGSTATUS%><%END%> LOS <%LOSTRACK%><%END%> Address: <%ADDRESS%>[address] [facility] [address]<%END%> PHYS DOC NOTES <%PHYDOC%><%END%> PROVIDER INFORMATION <%PROVROLETBL%><%END%> VITALS INFORMATION <%UDTHART_DEPART_CLIN_VITALS%>Height: 5ft 7.0in Weight: 222.89 lbs (BMI: 34.9) Temp: 97.7 F Heart Rate: 71 Respiratory: 18 O2 Sat: 98 BP: 118/70 <%END%> LOCATION INFORMATION <%LOCTBL%>Arrival Nurse Unit Room Bed <%END%> ORDERS INFORMATION <%ORDNRESTBL%><%END%> MEDICAL INFORMATION Allergy Info: <%ALLERGY%>Zithromax<%END%> <%UDTHART_PEDS_VIS_HEAR_TESTING%><%END%> HOME MEDICATIONS <%UDTHART_DEPART_HOME_MEDS%>Ambien 10 mg oral tablet 10 mg, 1 Tab, Oral, At bedtime, 30 Day(s), 5 Refills, Printed Bactrim DS 800 mg-160 mg oral tablet 1 Tab, Oral, 2 times a day, 10 Day(s), Routed to: [facility]/pharmacy #[id number] Loestrin FE 1.5/30 oral tablet 1 Tab, Oral, Daily, 28 Day(s), 11 Refills, start on Friday mouth piece for nebulizer See Instructions, as needed Xopenex 1.25 mg/3 mL inhalation solution 1.25 mg, 3 mL, Nebulized inhalation, 3 times a day, 30 Day(s), 2 Refills, Please dispense with tubing. Zoloft 50 mg oral tablet 50 mg, 1 Tab, Oral, Daily, 30 Day(s), 5 Refills, Printed <%END%> DISCHARGE INFORMATION Discharge Disposition: <%DISDISP%><%END%> Discharge Location: <%DISLOC%><%END%> PATIENT EDUCATION INFORMATION Instructions: <%DISINSTRUCT%><%END%> Follow up: <%FOLLOWUPTABLE%><%END%> DIAGNOSIS <%DIAGNOSIS%><%END%> 02/06/2012 [facility] Care Office/ Clinic Notes Office/Clinic Notes Patient: KATE SAGE Age: 16 years Sex: Female : 1995 Associated Diagnoses: None Author: Irish Remy DO Visit Information Visit type: New symptom. Accompanied by: Mother. Source of history: Self, Mother. Chief Complaint Patient feeling depressed x couple months. Wanting to talk Dr. Remy. Inc in asthma symptoms, cold History of Present Illness The patient presents with nasal congestion. The patient presents with rhinorrhea. The patient presents with cough. The onset was gradual. The duration is 1 weeks. Quality productive. The severity is moderate. The symptom occurs constantly. The course is not improving. Associated symptoms: wheeze, not fever and not rhinorrhea. Interval History Depression The course is worsening. The effect on daily activities is change in sleeping patterns. Associated symptoms characterized by insomnia, loss of appetite and anxiety. emotional, tearful, not sleeping well at all. mom's enax has helped some. pt with lots of stress at school and with sport. seems detatached. doens't feel like herself. Review of Systems Constitutional: Negative. Respiratory: Negative. Cardiovascular: Negative. Gastrointestinal: Negative. Genitourinary: periods much better. Musculoskeletal: Negative. Neurologic: Negative. Psychiatric: Anxiety, Depression. Health Status Allergies: . Allergic Reactions (Selected) Severity Not Documented Zithromax- Rash. Current medications: (Selected). Prescriptions Ordered Loestrin FE 1.5/30 oral tablet: 1 Tab, PO, daily, start on Friday, Tab Xopenex 1.25 mg/3 mL inhalation solution: 1.25 mg, 3 mL, NEB, TID, Please dispense with tubing., 1 BX mouth piece for nebulizer: See Instructions, as needed, 1 EA Histories Past Medical History: . No active or resolved past medical history items have been selected or recorded. Family History: . Cardiovascular Peds History High Blood Pressure Medical History: Mother, FAM HX HTN Endocrine/Metabolic Past Med Hx Diabetes Medical History: Grandparents Endocrine, Other Medical History: Mother, Hypothyroid Neurological Peds Health History Neurological, Other Medical History: Grandparents, Stroke Oncologic Peds Health History Non-Hodgkin's Lymphoma Health Hx: Mother Procedure History: . Arthroscopy, shoulder, surgical; debridement, limited (70838) in 2009 at 14 Years. Social History . Alcohol Use Alcohol Use: Not applicable due to age Current Tobacco Usage: Denies Physical Examination VS/Measurements Vital Signs 02/06/2012 15:56 Temperature Tympanic 36.5 DegC Peripheral Pulse Rate 71 bpm Respiratory Rate 18 br/min Systolic Blood Pressure 118 mmHg Diastolic Blood Pressure 70 mmHg Blood Pressure Type Manual Blood Pressure Location Left arm , Measurements from flowsheet : Measurements 02/06/2012 15:56 Height 170.1 cm Weight 101.1 kg Scale Standing digital BSA 2.1856 m2 Body Mass Index 34.9 kg/m2 General: Alert and oriented, No acute distress. Eye: Pupils are equal, round and reactive to light, Extraocular movements are intact. HENT: Tympanic membranes are clear. Nose: Discharge ( Moderate amount, Clear ). Throat: Pharynx ( post-nasal drip ). Neck: Lymph nodes: Anterior triangle, Lymphadenopathy, [place]. Respiratory: Lungs are clear to auscultation, Respirations are non-labored, Breath sounds are equal. Cardiovascular: Normal rate, Regular rhythm, No murmur. Integumentary: Warm, Dry, [place], Intact, No rash. Impression and Plan Diagnosis Adjustment disorder with depressive symptoms (ICD9 309.0). Course: Worsening. Plan PowerOrders. Pharmacy: Ambien 10 mg oral tablet (Ordered): 10 mg, 1 Tab, PO, AT BEDTIME, 30 Tab Zoloft 50 mg oral tablet (Ordered): 50 mg, 1 Tab, PO, daily, 30 Tab Diagnosis Acute bronchitis (ICD9 466.0). Course: Worsening. Plan PowerOrders. Evaluation and Management: Office Visit Level 4 Est - 06299 (Completed): 02/06/2012 19:34 Plan PowerOrders. Pharmacy: Bactrim DS 800 mg-160 mg oral tablet (Ordered): 1 Tab, PO, BID, 20 Tab Counseled: Patient, Family, Regarding diagnosis, Regarding treatment, Regarding medications. Patient Instructions: f/u prn. counselor handout [Electronically Signed on 02.06.2012 07:35 PM]
Irish Remy DO
</br> 02/06/2012 [ Electronically Signed on 02.06.2012 07:35 PM] Irish Remy DO [facility] Office/Clinic Notes Office/Clinic Notes Patient: KATE SAGE Age: 16 years Sex: Female : 1995 Associated Diagnoses: None Author: Dontae Astorga, ARRT Visit Information Visit type: New symptom. Accompanied by: Mother. Source of history: Self, Mother. Chief Complaint Patient feeling depressed x couple months. Wanting to talk Dr. Remy. Interval History Depression The course is worsening. The effect on daily activities is change in sleeping patterns. Associated symptoms characterized by insomnia, loss of appetite and anxiety. Review of Systems Constitutional: Negative. Respiratory: Negative. Cardiovascular: Negative. Gastrointestinal: Negative. Musculoskeletal: Negative. Neurologic: Negative. Psychiatric: Anxiety, Depression. Health Status Allergies: . Allergic Reactions (Selected) Severity Not Documented Zithromax- Rash. Current medications: (Selected). Prescriptions Ordered Loestrin FE 1.5/30 oral tablet: 1 Tab, PO, daily, start on Friday, Tab Xopenex 1.25 mg/3 mL inhalation solution: 1.25 mg, 3 mL, NEB, TID, Please dispense with tubing., 1 BX mouth piece for nebulizer: See Instructions, as needed, 1 EA Histories Past Medical History: . No active or resolved past medical history items have been selected or recorded. Family History: . Cardiovascular Peds History High Blood Pressure Medical History: Mother, FAM HX HTN Endocrine/Metabolic Past Med Hx Diabetes Medical History: Grandparents Endocrine, Other Medical History: Mother, Hypothyroid Neurological Peds Health History Neurological, Other Medical History: Grandparents, Stroke Oncologic Peds Health History Non-Hodgkin's Lymphoma Health Hx: Mother Procedure History: . Arthroscopy, shoulder, surgical; debridement, limited (94948) in 2009 at 14 Years. Social History . Alcohol Use Alcohol Use: Not applicable due to age Current Tobacco Usage: Denies 02/06/2012 [facility] Office/ Clinic Notes Office/Clinic Notes Patient: KATE SAGE Age: 16 years Sex: Female : 1995 Associated Diagnoses: None Author: Mehran Botello DO Visit Information Visit type: New symptom. Accompanied by: Father. Source of history: Self. Chief Complaint Pt presents with rash that is spreading over entire body - intense itching per pt History of Present Illness The patient presents with rash. The location is the face, the neck, the left upper extremity, the right upper extremity, the right wrist and Waistline . The onset was sudden and beginning 1 days ago. The duration is 1 days. There were relieving factors including not medication. It is characterized by multiple lesions, color (pink in color, red in color), irritation by clothing, itching and Raised lesions . The symptom occurs constantly. The course is worsening. Associated symptoms itching, no fever, no edema: facial, no edema: peripheral no swollen lymph glands. No exacerbating factors. Review of Systems Constitutional: No fever. Respiratory: No shortness of breath, No cough. Integumentary: Rash. Neurologic: Alert and oriented X4. Health Status Allergies: . Allergic Reactions (Selected) Severity Not Documented Zithromax- Rash. Histories Past Medical History: . No active or resolved past medical history items have been selected or recorded. Family History: . Cardiovascular Peds History High Blood Pressure Medical History: Mother, FAM HX HTN Endocrine/Metabolic Past Med Hx Diabetes Medical History: Grandparents Endocrine, Other Medical History: Mother, Hypothyroid Neurological Peds Health History Neurological, Other Medical History: Grandparents, Stroke Oncologic Peds Health History Non-Hodgkin's Lymphoma Health Hx: Mother Procedure History: . Arthroscopy, shoulder, surgical; debridement, limited ([id number]) in 2009 at 14 Years. Social History . Alcohol Use Alcohol Use: Not applicable due to age Current Tobacco Usage: Denies Physical Examination VS/Measurements Vital Signs 12/12/2011 17:26 Temperature Tympanic 37.1 DegC Peripheral Pulse Rate 68 bpm Respiratory Rate 20 br/min Systolic Blood Pressure 110 mmHg Diastolic Blood Pressure 72 mmHg , Measurements from flowsheet : Measurements 12/12/2011 17:26 Weight 96.6 kg Documented vital signs: Blood Pressure ( Systolic 110 mmHg, Diastolic 72 mmHg ), Pulse ( 68 beats per min ), Respiration ( 20 breaths/ min ), Temperature ( Tympanic 37.1 degrees Celsius ), Measured weight ( 96.6 kgs ) General: Alert and oriented, No acute distress. Eye: Pupils are equal, round and reactive to light, Extraocular movements are intact, Normal conjunctiva. HENT: Normocephalic, Tympanic membranes are clear, Normal hearing, Oral mucosa is moist, No pharyngeal erythema. Neck: Supple, Non-tender, No lymphadenopathy. Respiratory: Lungs are clear to auscultation, Respirations are non-labored, Breath sounds are equal, Symmetrical chest wall expansion. Cardiovascular: Normal rate, Regular rhythm, No murmur, Normal peripheral perfusion. Lymphatics: No lymphadenopathy. Integumentary: Warm, Dry, [place], Intact, diffuse raised itching linear streaked rash. Neurologic: Alert, Oriented. Psychiatric: Cooperative, Appropriate mood & affect. Impression and Plan Diagnosis Contact dermatitis (ICD9 692.9). Course: Worsening. Counseled: Patient, Regarding diagnosis, Regarding treatment, Regarding medications. Patient Instructions: CONTACT DERMATITIS, steroid taper. [Electronically Signed on 12.12.2011 05:43 PM]
Mehran Botello,
</br> 12/12/2011 [ Electronically Signed on 12.12.2011 05:43 PM] Mehran Botello DO [facility] Office/Clinic Notes Office/Clinic Notes Patient: KATE SAGE Age: 16 years Sex: Female : 1995 Associated Diagnoses: None Author: Ariadna Wright LPN Visit Information Visit type: New symptom. Accompanied by: Father. Source of history: Self. Chief Complaint Pt presents with rash that is spreading over entire body - intense itching per pt History of Present Illness The patient presents with rash. The location is the face, the neck, the left upper extremity, the right upper extremity, the right wrist and Waistline . The onset was sudden and beginning 1 days ago. The duration is 1 days. There were relieving factors including not medication. It is characterized by multiple lesions, color (pink in color, red in color), irritation by clothing, itching and Raised lesions . The symptom occurs constantly. The course is worsening. Associated symptoms itching, no fever, no edema: facial, no edema: peripheral no swollen lymph glands. No exacerbating factors. Review of Systems Constitutional: No fever. Respiratory: No shortness of breath, No cough. Integumentary: Rash. Neurologic: Alert and oriented X4. Health Status Allergies: . Allergic Reactions (Selected) Severity Not Documented Zithromax- Rash. Histories Past Medical History: . No active or resolved past medical history items have been selected or recorded. Family History: . Cardiovascular Peds History High Blood Pressure Medical History: Mother, FAM HX HTN Endocrine/Metabolic Past Med Hx Diabetes Medical History: Grandparents Endocrine, Other Medical History: Mother, Hypothyroid Neurological Peds Health History Neurological, Other Medical History: Grandparents, Stroke Oncologic Peds Health History Non-Hodgkin's Lymphoma Health Hx: Mother Procedure History: . Arthroscopy, shoulder, surgical; debridement, limited (32694) in 2009 at 14 Years. Social History . Alcohol Use Alcohol Use: Not applicable due to age Current Tobacco Usage: Denies Physical Examination VS/Measurements Documented vital signs: Blood Pressure ( Systolic 110 mmHg, Diastolic 72 mmHg ), Pulse ( 68 beats per min ), Respiration ( 20 breaths/ min ), Temperature ( Tympanic 37.1 degrees Celsius ), Measured weight ( 96.6 kgs ) 12/12/2011 [facility] TSH TSH 1.61 uIU/mL 0.51 - 4.91 11/01/2011 N [facility] -RBC Morphology RBC Morph Normal Normal 11/01/2011 N [facility] -Auto Diff Baso 0 % 0 - 2 11/01/2011 N [facility] CBC with Diff Platelet 234 x10^3/uL 150 - 400 11/01/2011 N [facility] Ambulatory Depart Summary Ambulatory Depart Summary <%[facility]_CLINIC_HEADER_UDT%>[facility] [address] [place] [address] <%END%> PERSON INFORMATION Name <%NAME%>KATE SAGE<%END%> Age <%AGE%> 16 Years<%END%> <%%>1995<%END%> Sex <%GENDER%>Female<%END%> Language <%LANGUAGE%>Finnish<%END%> PCP <%PCP%>Irish Remy DO<%END%> Marital Status <%MARITALSTAT%>Single<%END%> Phone <%PHONE%> <%END%> Time Zone <%TIMEZONE%><%END%> MRN <%ALIASPMRN%>[id number]<%END%> Visit Id <%ALIASEVISITID%><%END%> Acct# <%ALIASEFIN NBR%>[id number]<%END%> Visit Reason <%RFV%>PERIOD FOR 19 DAYS/[employer] PPO<%END%> Specialty <%SPECIALTY%><%END%> Enc Type <%ENCNTRTYPE%>[facility]<%END%> Med Service <%MEDSERVICE%>PHYSOFF-Physician Office<%END%> Referred by <%REFERREDBY%><%END%> Track Group <%TRACKGROUP%>Clinic Discharge Process<%END%> Discharge <%DISCHDTTM%><%END%> Tracking Id <%TRACKINGID%><%END%> Checkout <%CHECKOUTDTTM%><%END%> Checkin <%CHECKINDTTM%><%END%> Acuity <%ACUITY%><%END%> Dispo Type <%DISDISP%><%END%> Arrival <%ARRIVALDTTM%>11/01/2011 10:55 AM<%END%> Reg Status <%REGSTATUS%><%END%> LOS <%LOSTRACK%><%END%> Address: <%ADDRESS%>[address] [facility] [address]<%END%> PHYS DOC NOTES <%PHYDOC%><%END%> PROVIDER INFORMATION <%PROVROLETBL%><%END%> VITALS INFORMATION <%[facility]ART_DEPART_CLIN_VITALS%>Height: 5ft 6.5in Weight: 209.44 lbs Temp: 97.7 F Heart Rate: 70 Respiratory: 18 O2 Sat: 100 BP: 140/90 <%END%> LOCATION INFORMATION <%LOCTBL%>Arrival Nurse Unit Room Bed <%END%> ORDERS INFORMATION <%ORDNRESTBL%>Start Time Order Type Status Stop Time Provider 11/01/2011 11:30 AM Thyroid Stimulating Hormone Laboratory Ordered 11/01/2011 11:30 AM Irish Remy DO 11/01/2011 11:30 AM CBC with Diff Laboratory Ordered 11/01/2011 11:30 AM Irish Remy DO 11/01/2011 11:34 AM Specimen Collect Clinic Charge -Clinic Laboratory -Clinic Completed 11/01/2011 11:34 AM Irish Remy DO <%END%> MEDICAL INFORMATION Allergy Info: <%ALLERGY%>Zithromax<%END%> <%[facility]_PEDS_VIS_HEAR_TESTING%><%END%> HOME MEDICATIONS <%[facility]_DEPART_HOME_MEDS%> <%END%> DISCHARGE INFORMATION Discharge Disposition: <%DISDISP%><%END%> Discharge Location: <%DISLOC%><%END%> PATIENT EDUCATION INFORMATION Instructions: <%DISINSTRUCT%><%END%> Follow up: <%FOLLOWUPTABLE%><%END%> DIAGNOSIS <%DIAGNOSIS%>Menorrhagia<%END%> 11/01/2011 [facility] Office/ Clinic Notes Office/Clinic Notes Patient: KATE SAGE Age: 16 years Sex: Female : 1995 Associated Diagnoses: None Author: Irish Remy DO Visit Information Visit type: New symptom. Accompanied by: No one. Source of history: Self. Chief Complaint Pt presents with having her menstrual cycle for 20 dyas. Pt states that she is now finished. History of Present Illness The patient presents with palpitations. The onset was gradual. The duration is unknown. They are characterized by a sensation of fluttering in the chest and skipping beats. The symptom occurs recurrently. Associated symptoms chest pain. holter with pvs, apcs. The patient presents with menorrhagia. The onset was sudden. The duration is 20 days. It is characterized by an excessive amount of vaginal flow, bright red vaginal flow and LMP 10/10/2011. The symptom occurs constantly. The course is worsening. The effect on daily activities is no change in activity level. Associated symptoms vaginal bleeding, no fever, no abdominal pain, no low back pain no irritability. No exacerbating factors. No relieving factors. Review of Systems Constitutional: No fever, No weakness, No fatigue. Ear/Nose/Mouth/Throat: No nasal congestion, No sore throat. Respiratory: No shortness of breath, No cough, No wheezing. Cardiovascular: Chest pain: Midsternal. Gastrointestinal: No nausea, No vomiting, No diarrhea. Gynecologic: Menstrual cycle: Duration is 20 days, Heavy flow. Musculoskeletal: Joint pain, rhuem feels neuropathic. has neuro appt on mondya. Neurologic: No headache. Health Status Allergies: . Allergic Reactions (Selected) Severity Not Documented Zithromax- Rash. Current medications: None. Histories Past Medical History: . No active or resolved past medical history items have been selected or recorded. Family History: . Cardiovascular Peds History High Blood Pressure Medical History: Mother, FAM HX HTN Endocrine/Metabolic Past Med Hx Diabetes Medical History: Grandparents Endocrine, Other Medical History: Mother, Hypothyroid Neurological Peds Health History Neurological, Other Medical History: Grandparents, Stroke Oncologic Peds Health History Non-Hodgkin's Lymphoma Health Hx: Mother Procedure History: . Arthroscopy, shoulder, surgical; debridement, limited (96974) in 2010 at 14 Years. Social History . Alcohol Use Alcohol Use: Not applicable due to age Current Tobacco Usage: Denies Physical Examination VS/Measurements Vital Signs 11/01/2011 11:06 Temperature Tympanic 36.5 DegC Peripheral Pulse Rate 70 bpm Respiratory Rate 18 br/min Systolic Blood Pressure 140 mmHg HI Diastolic Blood Pressure 90 mmHg HI , Measurements from flowsheet : Measurements 11/01/2011 11:06 Weight 95.0 kg Scale Balance General: Alert and oriented, No acute distress. Eye: Pupils are equal, round and reactive to light, Extraocular movements are intact. HENT: Oral mucosa is moist. Neck: Supple, No thyromegaly. Respiratory: Lungs are clear to auscultation, Respirations are non-labored, Breath sounds are equal. Cardiovascular: Normal rate, Regular rhythm. Systolic murmur: Location ( Right upper sternal border ), Intensity ( Grade II ), Holosystolic. Integumentary: Warm, Dry. Psychiatric: Cooperative. Impression and Plan Diagnosis Menorrhagia (ICD9 626.2). Plan PowerOrders. Laboratory: CBC with Diff (Ordered): 11/01/2011 11:25, Routine collect, Menorrhagia, [facility] TSH (Thyroid Stim Hormone) (Ordered): 11/01/2011 11:25, Routine collect, Menorrhagia, [facility] Diagnosis Heart palpitation (ICD9 785.1). Cardiac Murmur (ICD9 785.2). Plan PowerOrders. Evaluation and Management: Office Visit Level 4 Est - 08039 (Completed): 11/01/2011 12:11 Counseled: Patient, Regarding diagnosis, Regarding treatment, Regarding medications. Patient Instructions: f/u prn. referral to cardio at [facility] [Electronically Signed on 11.01.2011 12:11 PM]
Irish Remy, DO
</br> 11/01/2011 [ Electronically Signed on 11.01.2011 12:11 PM] Irish Remy DO [facility] Office/Clinic Notes Office/Clinic Notes Patient: KATE SAGE Age: 16 years Sex: Female : 1995 Associated Diagnoses: None Author: Deya Lopez Visit Information Visit type: New symptom. Accompanied by: No one. Source of history: Self. Chief Complaint Pt presents with having her menstrual cycle for 20 dyas. Pt states that she is now finished. History of Present Illness The patient presents with menorrhagia. The onset was sudden. The duration is 20 days. It is characterized by an excessive amount of vaginal flow, bright red vaginal flow and LMP 10/10/2011. The symptom occurs constantly. The course is worsening. The effect on daily activities is no change in activity level. Associated symptoms vaginal bleeding, no fever, no abdominal pain, no low back pain no irritability. No exacerbating factors. No relieving factors. Review of Systems Constitutional: No fever, No weakness, No fatigue. Ear/Nose/Mouth/Throat: No nasal congestion, No sore throat. Respiratory: No shortness of breath, No cough, No wheezing. Cardiovascular: Chest pain: Midsternal. Gastrointestinal: No nausea, No vomiting, No diarrhea. Gynecologic: Menstrual cycle: Duration is 20 days, Heavy flow. Neurologic: No headache. Health Status Allergies: . Allergic Reactions (Selected) Severity Not Documented Zithromax- Rash. Current medications: None. Histories Past Medical History: . No active or resolved past medical history items have been selected or recorded. Family History: . Cardiovascular Peds History High Blood Pressure Medical History: Mother, FAM HX HTN Endocrine/Metabolic Past Med Hx Diabetes Medical History: Grandparents Endocrine, Other Medical History: Mother, Hypothyroid Neurological Peds Health History Neurological, Other Medical History: Grandparents, Stroke Oncologic Peds Health History Non-Hodgkin's Lymphoma Health Hx: Mother Procedure History: . Arthroscopy, shoulder, surgical; debridement, limited (75490) in 2010 at 14 Years. Social History . Alcohol Use Alcohol Use: Not applicable due to age Current Tobacco Usage: Denies 11/01/2011 [facility] Ambulatory Depart Summary Ambulatory Depart Summary <%[facility]_CLINIC_HEADER_UDT%>[facility] [address] [place] [address] <%END%> PERSON INFORMATION Name <%NAME%>KATE SAGE<%END%> Age <%AGE%> 15 Years<%END%> <%%>1995<%END%> Sex <%GENDER%>Female<%END%> Language <%LANGUAGE%>Finnish<%END%> PCP <%PCP%>Irish Remy DO<%END%> Marital Status <%MARITALSTAT%>Single<%END%> Phone <%PHONE%> <%END%> Time Zone <%TIMEZONE%><%END%> MRN <%ALIASPMRN%>[id number]<%END%> Visit Id <%ALIASEVISITID%><%END%> Acct# <%ALIASEFIN NBR%>[id number]<%END%> Visit Reason <%RFV%>POISON BERNARDINO.BC<%END%> Specialty <%SPECIALTY%><%END%> Enc Type <%ENCNTRTYPE%>[facility]<%END%> Med Service <%MEDSERVICE%>PHYSOFF-Physician Office<%END%> Referred by <%REFERREDBY%><%END%> Track Group <%TRACKGROUP%>Clinic Discharge Process<%END%> Discharge <%DISCHDTTM%><%END%> Tracking Id <%TRACKINGID%><%END%> Checkout <%CHECKOUTDTTM%><%END%> Checkin <%CHECKINDTTM%><%END%> Acuity <%ACUITY%><%END%> Dispo Type <%DISDISP%><%END%> Arrival <%ARRIVALDTTM%>09/20/2011 1:38 PM<%END%> Reg Status <%REGSTATUS%><%END%> LOS <%LOSTRACK%><%END%> Address: <%ADDRESS%>[address] [facility] [place] [address]<%END%> PHYS DOC NOTES <%PHYDOC%><%END%> PROVIDER INFORMATION <%PROVROLETBL%><%END%> VITALS INFORMATION <%[facility]ART_DEPART_CLIN_VITALS%>Height: 5ft 6.5in Weight: 218.04 lbs Temp: 98.8 F Heart Rate: 85 Respiratory: 20 O2 Sat: BP: 114/66 <%END%> LOCATION INFORMATION <%LOCTBL%>Arrival Nurse Unit Room Bed <%END%> ORDERS INFORMATION <%ORDNRESTBL%>Start Time Order Type Status Stop Time Provider 09/20/2011 2:04 PM Office Visit Level 3 Est - 73687 Evaluation and Management Completed 09/20/2011 2:04 PM Mehran Botello DO 09/20/2011 1:57 PM Kenalog 40 mg Careset -Clinic Clinic Careset Completed 09/20/2011 1:57 PM Mehran Botello DO 09/20/2011 1:56 PM Kenalog 40 mg -Clinic Clinic Charge Completed 09/20/2011 1:57 PM Mehran Botello DO 09/20/2011 1:56 PM Admin SubQ or IM Injection -Clinic Clinic Charge Completed 09/20/2011 1:57 PM Mehran Botello DO <%END%> MEDICAL INFORMATION Allergy Info: <%ALLERGY%>Zithromax<%END%> HOME MEDICATIONS <%[facility]_DEPART_HOME_MEDS%>Mobic 15 mg oral tablet 15 mg, 1 Tab, Daily, 30 Tab , 0 Refills NEBULIZER with tubing and mouthpiece See Instructions, use every 4-6 hrs prn., 1 units, 0 Refills predniSONE 20 mg oral tablet See Instructions, start 09/20 3 TABS PO once daily days 1-2; 2 tabs po daily days 3-5; 1 tab once daily days 6-8, 15 Tab, 0 Refills , Routed to: [facility]/pharmacy #[id number] Xopenex 1.25 mg/3 mL inhalation solution 1.25 mg, 3 mL, 3 times a day, 1 BX, 0 Refills <%END%> DISCHARGE INFORMATION Discharge Disposition: <%DISDISP%><%END%> Discharge Location: <%DISLOC%><%END%> PATIENT EDUCATION INFORMATION Instructions: <%DISINSTRUCT%>POISON BERNARDINO DERMATITIS<%END%> Follow up: <%FOLLOWUPTABLE%><%END%> DIAGNOSIS <%DIAGNOSIS%>Rash; Contact dermatitis<%END%> 09/20/2011 [facility] Office/ Clinic Notes Office/Clinic Notes Patient: KATE SAGE Age: 15 years Sex: Female : 1995 Associated Diagnoses: None Author: Mehran Botello DO Visit Information Visit type: New symptom. Accompanied by: Mother. Source of history: Self, Mother. Chief Complaint Skin rash - possible poison bernardino History of Present Illness The patient presents with rash. The location is the face, the neck, the right hand and the left lower leg. The onset was sudden and beginning 1 days ago. The duration is 1 days. There were relieving factors including not lotions. It is characterized by multiple lesions, color red in color, a burning sensation , irritatation by clothing, a stinging sensation and no itching. The symptom occurs constantly. The course is worsening. The effect on daily activities is change in work/school duties. Associated symptoms itching, no fever. Pt states that she has not been exposed to poison bernardino, but is thinking that's what her rash it. Says that it doesn't it, but it "guevara really bad". No exacerbating factors. Review of Systems Constitutional: No fever. Respiratory: Negative. Integumentary: Rash, Pruritus. Neurologic: Alert and oriented X4. Health Status Allergies: . Allergic Reactions (Selected) Severity not Documented Zithromax- Rash. Current medications: . Prescriptions and Home Medications Miscellaneous Medication (NEBULIZER with tubing and mouthpiece), See Instructions, use every 4-6 hrs prn., 1 units Resp-Levalbuterol (Xopenex 1.25 mg/3 mL inhalation solution), 1.25 mg, 3 mL, NEB , TID, 1 BX meloxicam (Mobic 15 mg oral tablet), 15 mg, 1 Tab, PO, daily, 30 Tab predniSONE (predniSONE 20 mg oral tablet), See Instructions, start 09/20 3 TABS PO once daily days 1-2; 2 tabs po daily days 3-5; 1 tab once daily days 6-8, 15 Tab Histories Past Medical History: . No active or resolved past medical history items have been selected or recorded. Family History: . Cardiovascular Peds History High Blood Pressure Medical History: Mother, FAM HX HTN Endocrine/Metabolic Past Med Hx Diabetes Medical History: Grandparents Endocrine, Other Medical History: Mother, Hypothyroid Neurological Peds Health History Neurological, Other Medical History: Grandparents, Stroke Oncologic Peds Health History Non-Hodgkin's Lymphoma Health Hx: Mother Procedure History: . Arthroscopy, shoulder, surgical; debridement, limited (26402) in 2009 at 14 Years. Social History . Alcohol Use Alcohol Use: Not applicable due to age Current Tobacco Usage: Denies Physical Examination VS/Measurements Vital Signs 09/20/2011 13:46 Temperature Tympanic 37.1 DegC Peripheral Pulse Rate 85 bpm Respiratory Rate 20 br/min Systolic Blood Pressure 114 mmHg Diastolic Blood Pressure 66 mmHg Documented vital signs: Blood Pressure ( Systolic 114 mmHg, Diastolic 66 mmHg ), Pulse ( 85 beats per min ), Respiration ( 20 breaths/ min ), Temperature ( Tympanic 37.1 degrees Celsius ), Measured weight ( 98.9 kgs ) General: Alert and oriented, No acute distress. Eye: Pupils are equal, round and reactive to light, Extraocular movements are intact, Normal conjunctiva. HENT: Normocephalic, Tympanic membranes are clear, Normal hearing, Oral mucosa is moist, No pharyngeal erythema. Neck: Supple, Non-tender, No lymphadenopathy. Respiratory: Lungs are clear to auscultation, Respirations are non-labored, Breath sounds are equal, Symmetrical chest wall expansion. Cardiovascular: Normal rate, Regular rhythm, No murmur, Normal peripheral perfusion. Lymphatics: No lymphadenopathy. Integumentary: Warm, Dry, [place], Intact. Neurologic: Alert, Oriented. Psychiatric: Cooperative, Appropriate mood & affect. Impression and Plan Diagnosis Contact dermatitis (ICD9 692.9). Course: Worsening. Plan PowerOrders. Evaluation and Management: Office Visit Level 3 Est - [id number] (Completed): 09/20/2011 14:04 Counseled: Patient, Family, Regarding diagnosis, Regarding treatment, Regarding medications. Patient Instructions: POISON BERNARDINO DERMATITIS, kenalog 40 mg IM here, start tapered steroids tomorrow. 09/20/2011 [facility] Office/ Clinic Notes Office/Clinic Notes Patient: KATE SAGE Age: 15 years Sex: Female : 1995 Associated Diagnoses: None Author: Ariadna Wright LPN Visit Information Visit type: New symptom. Accompanied by: Mother. Source of history: Self, Mother. Chief Complaint Skin rash - possible poison bernardino History of Present Illness The patient presents with rash. The location is the face, the neck, the right hand and the left lower leg. The onset was sudden and beginning 1 days ago. The duration is 1 days. There were relieving factors including not lotions. It is characterized by multiple lesions, color red in color, a burning sensation , irritatation by clothing, a stinging sensation and no itching. The symptom occurs constantly. The course is worsening. The effect on daily activities is change in work/school duties. Associated symptoms itching, no fever. Pt states that she has not been exposed to poison bernardino, but is thinking that's what her rash it. Says that it doesn't it, but it "guevara really bad". No exacerbating factors. Review of Systems Constitutional: No fever. Integumentary: Rash. Neurologic: Alert and oriented X4. Health Status Allergies: . Allergic Reactions (Selected) Severity not Documented Zithromax- Rash. Current medications: . Prescriptions and Home Medications Miscellaneous Medication (NEBULIZER with tubing and mouthpiece), See Instructions, use every 4-6 hrs prn., 1 units Resp-Levalbuterol (Xopenex 1.25 mg/3 mL inhalation solution), 1.25 mg, 3 mL, NEB , TID, 1 BX meloxicam (Mobic 15 mg oral tablet), 15 mg, 1 Tab, PO, daily, 30 Tab Histories Past Medical History: . No active or resolved past medical history items have been selected or recorded. Family History: . Cardiovascular Peds History High Blood Pressure Medical History: Mother, FAM HX HTN Endocrine/Metabolic Past Med Hx Diabetes Medical History: Grandparents Endocrine, Other Medical History: Mother, Hypothyroid Neurological Peds Health History Neurological, Other Medical History: Grandparents, Stroke Oncologic Peds Health History Non-Hodgkin's Lymphoma Health Hx: Mother Procedure History: . Arthroscopy, shoulder, surgical; debridement, limited (28052) in 2009 at 14 Years. Social History . Alcohol Use Alcohol Use: Not applicable due to age Current Tobacco Usage: Denies Physical Examination VS/Measurements Documented vital signs: Blood Pressure ( Systolic 114 mmHg, Diastolic 66 mmHg ), Pulse ( 85 beats per min ), Respiration ( 20 breaths/ min ), Temperature ( Tympanic 37.1 degrees Celsius ), Measured weight ( 98.9 kgs ) 09/20/2011 [facility] SMEG- Follow up routine physicals&immuns SMEG-Follow up routine physicals&immuns No [id number] No [id number] Yes [id number] No [id number] No [id number] Yes [id number] No [id number] No [id number] No 09/20/2011 [facility] THYRPX Thyroid Peroxidase < 10 <=34 07/26/2011 NA
Test performed by [facility]
[address] [place] [address]
[facility] THYROAB Thyroglobulin Ab < 20 <=39 07/26/2011 NA
Test performed by [facility]
[address] [place] [address]
[facility] ANAPRO MAICOL Pattern. Speckled 07/11/2011 N Speckled Interpretation:A high titer, speckled VLADIMIR is a nonspecific pattern but may be seen with SLE, MCTD, Scleroderma as well as other rheumatic and nonrheumatic disease
[facility] CCP Cyclic Citrullinated Peptide 19.0 <=19.0 2011 NA Negative

Test performed by [facility]
[address] [place] [address]
[facility] RA RA Negative Negative 2011 N [facility] CHEM12 BUN 16 mg/ dL 9 - 21 07/02/2011 N [facility] CRP C Reactive Prot <0.2 mg/dL 0.0 - 0.9 07/02/2011 N [facility] MINDY Ferritin 20 ng/mL 3 - 105 07/02/2011 N [facility] TSH TSH 1.56 uIU/mL 0.51 - 4.91 07/02/2011 N [facility] FE % Saturation 12 % 10 - 48 07/02/2011 N This result is equivalent to % transferrin saturation.
[facility] -RBC Morphology RBC Morph Normal Normal 2011 N [facility] -Auto Diff Abs [place] .5 x10^3/uL .0 - .9 07/02/2011 N [facility] CBC with Diff RDW 12.7 % 11.7 - 16.0 07/02/2011 N [facility] Office/Clinic Notes Office/Clinic Notes Patient: KATE SAGE Age: 15 years Sex: Female : 1995 Associated Diagnoses: None Author: Irish Remy DO Visit Information Visit type: New symptom. Accompanied by: Mother. Source of history: Self. History limitation: None. Chief Complaint heart fluttering x 2 months, pt states episodes almost everyday at random times History of Present Illness The patient presents with palpitations. The onset was gradual. The duration is 2 months. They are characterized by a sensation of fluttering in the chest , heart pounding and a rapid heart rate. The symptom occurs recurrently. The course is worsening. The effect on daily activities is change in activity level. Associated symptoms soa. increasing in frequency. 10-45 second duration. no sob, no lightheadedness. get keen awareness of breathing. pause to thud to chest and then flutter. Also c.o bilateral thumb discomfort. mom with rheum wilcox pending for similar. Review of Systems Constitutional: Negative. Ear/Nose/Mouth/Throat: No nasal congestion. Respiratory: No shortness of breath, No cough. Cardiovascular: Palpitations. Gastrointestinal: Negative. Genitourinary: Negative. Health Status Allergies: . Allergic Reactions (Selected) Severity not Documented Zithromax- Rash. Current medications: . Prescriptions and Home Medications Miscellaneous Medication (NEBULIZER with tubing and mouthpiece), See Instructions, use every 4-6 hrs prn., 1 units Resp-Levalbuterol (Xopenex 1.25 mg/3 mL inhalation solution), 1.25 mg, 3 mL, NEB , TID, 1 BX Histories Past Medical History: . No active or resolved past medical history items have been selected or recorded. Family History: . Cardiovascular Peds History High Blood Pressure Medical History: Mother, FAM HX HTN Endocrine/Metabolic Past Med Hx Diabetes Medical History: Grandparents Endocrine, Other Medical History: Mother, Hypothyroid Neurological Peds Health History Neurological, Other Medical History: Grandparents, Stroke Oncologic Peds Health History Non-Hodgkin's Lymphoma Health Hx: Mother Procedure History: . Arthroscopy, shoulder, surgical; debridement, limited (09152) in 2009 at 14 Years. NONE. Social History . Alcohol Use Alcohol Use: Not applicable due to age Current Tobacco Usage: Denies Physical Examination VS/Measurements Vital Signs 07/02/2011 17:20 Temperature Tympanic 36.6 DegC Peripheral Pulse Rate 96 bpm HI Respiratory Rate 18 br/min Systolic Blood Pressure 126 mmHg Diastolic Blood Pressure 80 mmHg General: Alert and oriented, No acute distress. Eye: Pupils are equal, round and reactive to light, Extraocular movements are intact. Neck: Supple, No thyromegaly. Respiratory: Lungs are clear to auscultation, Respirations are non-labored, Breath sounds are equal. Cardiovascular: Normal rate, Regular rhythm, No murmur. Musculoskeletal: base of thumbs bilat eith diffuse ttp. finklesteins neg. . Integumentary: Warm, Dry, [place]. Psychiatric: Cooperative, Appropriate mood & affect. Impression and Plan Diagnosis PALPITATIONS (ICD9 785.1). Joint Pain (ICD9 719.40). Course: Worsening. Plan PowerOrders. Laboratory: MAICOL Profile (Ordered): 07/02/2011 17:46, Routine collect, [facility], [facility] C-Reactive Protein (Ordered): 07/02/2011 17:46, Routine collect, [facility], [facility] CCP Antibody-IgG (Ordered): 07/02/2011 17:46, Routine collect, [facility], [facility] RA (Rheumatoid Factor) (Ordered): 07/02/2011 17:46, Routine collect, Joint Pain , [facility] TSH (Thyroid Stim Hormone) (Ordered): 07/02/2011 17:44, Routine collect, PALPITATIONS, [facility] Chem 12 (Ordered): 07/02/2011 17:44, Routine collect, PALPITATIONS, [facility] Iron and Iron Binding Capacity (Ordered): 07/02/2011 17:44, Routine collect, PALPITATIONS, [facility] Ferritin (Ordered): 07/02/2011 17:44, Routine collect, PALPITATIONS, [facility] CBC with Diff (Ordered): 07/02/2011 17:44, Routine collect, PALPITATIONS, [facility] Cardiovascular: ECG 12-Lead - Clinic. (Ordered): 07/02/2011 17:44, Routine, [facility], PALPITATIONS PowerOrders. Evaluation and Management: Office Visit Level 4 Est - 10811 (Completed): 07/02/2011 19:48 Counseled: Patient, Family, Regarding diagnosis, Regarding treatment, Regarding medications. Patient Instructions: f/u prn. 24 hr holter. 07/02/2011 [facility] Office/ Clinic Notes Office/Clinic Notes Patient: KATE SAGE Age: 15 years Sex: Female : 1995 Associated Diagnoses: None Author: Irish Remy DO Visit Information Visit type: New symptom. Accompanied by: Mother. Source of history: Self. History limitation: None. Chief Complaint heart fluttering x 2 months, pt states episodes almost everyday at random times History of Present Illness The patient presents with palpitations. The onset was gradual. The duration is 2 months. They are characterized by a sensation of fluttering in the chest , heart pounding and a rapid heart rate. The symptom occurs recurrently. The course is worsening. The effect on daily activities is change in activity level. Associated symptoms soa. increasing in frequency. 10-45 second duration. no sob, no lightheadedness. get keen awareness of breathing. pause to thud to chest and then flutter. Also c.o bilateral thumb discomfort. mom with rheum wilcox pending for similar. Review of Systems Constitutional: Negative. Ear/Nose/Mouth/Throat: No nasal congestion. Respiratory: No shortness of breath, No cough. Cardiovascular: Palpitations. Gastrointestinal: Negative. Genitourinary: Negative. Health Status Allergies: . Allergic Reactions (Selected) Severity not Documented Zithromax- Rash. Current medications: . Prescriptions and Home Medications Miscellaneous Medication (NEBULIZER with tubing and mouthpiece), See Instructions, use every 4-6 hrs prn., 1 units Resp-Levalbuterol (Xopenex 1.25 mg/3 mL inhalation solution), 1.25 mg, 3 mL, NEB , TID, 1 BX Histories Past Medical History: . No active or resolved past medical history items have been selected or recorded. Family History: . Cardiovascular Peds History High Blood Pressure Medical History: Mother, FAM HX HTN Endocrine/Metabolic Past Med Hx Diabetes Medical History: Grandparents Endocrine, Other Medical History: Mother, Hypothyroid Neurological Peds Health History Neurological, Other Medical History: Grandparents, Stroke Oncologic Peds Health History Non-Hodgkin's Lymphoma Health Hx: Mother Procedure History: . Arthroscopy, shoulder, surgical; debridement, limited (07618) in 2009 at 14 Years. NONE. Social History . Alcohol Use Alcohol Use: Not applicable due to age Current Tobacco Usage: Denies Physical Examination VS/Measurements Vital Signs 07/02/2011 17:20 Temperature Tympanic 36.6 DegC Peripheral Pulse Rate 96 bpm HI Respiratory Rate 18 br/min Systolic Blood Pressure 126 mmHg Diastolic Blood Pressure 80 mmHg General: Alert and oriented, No acute distress. Eye: Pupils are equal, round and reactive to light, Extraocular movements are intact. Neck: Supple, No thyromegaly. Respiratory: Lungs are clear to auscultation, Respirations are non-labored, Breath sounds are equal. Cardiovascular: Normal rate, Regular rhythm, No murmur. Musculoskeletal: base of thumbs bilat eith diffuse ttp. finklesteins neg. . Integumentary: Warm, Dry, [place]. Psychiatric: Cooperative, Appropriate mood & affect. Review / Management EKG NSR Impression and Plan Diagnosis PALPITATIONS (ICD9 785.1). Joint Pain (ICD9 719.40). Course: Worsening. Plan PowerOrders. Laboratory: MAICOL Profile (Ordered): 07/02/2011 17:46, Routine collect, [facility], [facility] C-Reactive Protein (Ordered): 07/02/2011 17:46, Routine collect, Joint Pain, [facility] CCP Antibody-IgG (Ordered): 07/02/2011 17:46, Routine collect, [facility], [facility] RA (Rheumatoid Factor) (Ordered): 07/02/2011 17:46, Routine collect, Joint Pain , [facility] TSH (Thyroid Stim Hormone) (Ordered): 07/02/2011 17:44, Routine collect, PALPITATIONS, [facility] Chem 12 (Ordered): 07/02/2011 17:44, Routine collect, PALPITATIONS, [facility] Iron and Iron Binding Capacity (Ordered): 07/02/2011 17:44, Routine collect, PALPITATIONS, [facility] Ferritin (Ordered): 07/02/2011 17:44, Routine collect, PALPITATIONS, [facility] CBC with Diff (Ordered): 07/02/2011 17:44, Routine collect, PALPITATIONS, [facility] Cardiovascular: ECG 12-Lead - Clinic. (Ordered): 07/02/2011 17:44, Routine, [facility], PALPITATIONS PowerOrders. Evaluation and Management: Office Visit Level 4 Est - 42671 (Completed): 07/02/2011 19:48 Counseled: Patient, Family, Regarding diagnosis, Regarding treatment, Regarding medications. Patient Instructions: f/u prn . 24 hr holter. 07/02/2011 [facility] Office/ Clinic Notes Office/Clinic Notes Patient: KATE SAGE Age: 15 years Sex: Female : 1995 Associated Diagnoses: None Author: Sofia Perez, ARRT Visit Information Visit type: New symptom. Accompanied by: Mother. Source of history: Self. History limitation: None. Chief Complaint heart fluttering x 2 months, pt states episodes almost everyday at random times History of Present Illness The patient presents with palpitations. The onset was gradual. The duration is 2 months. They are characterized by a sensation of fluttering in the chest , heart pounding and a rapid heart rate. The symptom occurs recurrently. The course is worsening. The effect on daily activities is change in activity level. Associated symptoms soa. Review of Systems Cardiovascular: Palpitations. Health Status Allergies: . Allergic Reactions (Selected) Severity not Documented Zithromax- Rash. Current medications: . Prescriptions and Home Medications Miscellaneous Medication (NEBULIZER with tubing and mouthpiece), See Instructions, use every 4-6 hrs prn., 1 units Resp-Levalbuterol (Xopenex 1.25 mg/3 mL inhalation solution), 1.25 mg, 3 mL, NEB , TID, 1 BX Histories Past Medical History: . No active or resolved past medical history items have been selected or recorded. Family History: . Cardiovascular Peds History High Blood Pressure Medical History: Mother, FAM HX HTN Endocrine/Metabolic Past Med Hx Diabetes Medical History: Grandparents Endocrine, Other Medical History: Mother, Hypothyroid Neurological Peds Health History Neurological, Other Medical History: Grandparents, Stroke Oncologic Peds Health History Non-Hodgkin's Lymphoma Health Hx: Mother Procedure History: . Arthroscopy, shoulder, surgical; debridement, limited (80186) in 2009 at 14 Years. NONE. Social History . Alcohol Use Alcohol Use: Not applicable due to age Current Tobacco Usage: Denies 07/02/2011 [facility] Office/ Clinic Notes Office/Clinic Notes Patient: KATE SAGE Age: 15 years Sex: Female : 1995 Associated Diagnoses: None Author: Irish Remy DO Chief Complaint patient presents with cough, nasal congestion, History of Present Illness The patient presents with cough. The onset was beginning 1 weeks ago. The duration is 1 weeks. Quality croupy. The symptom occurs intermittently. The course is worsening. The effect on daily activities is change in sleeping patterns. Associated symptoms: cough, productive, shortness of breath, wheeze, nasal congestion, chest tightness, yellow colors mucus and cough is keeping patient up at night. Review of Systems Constitutional: Fatigue. Ear/Nose/Mouth/Throat: Nasal congestion. Respiratory: Shortness of breath, Cough, Sputum production. Gastrointestinal: No nausea, No diarrhea. Health Status Allergies: . Allergic Reactions (Selected) Severity not Documented Zithromax- Rash. Current medications: . Prescriptions and Home Medications APAP/dextromethorphan/doxylamine (Nyquil Cold & Flu oral capsule), 2 Cap, PO, Q6H Histories Past Medical History: . No active or resolved past medical history items have been selected or recorded. Family History: . Neurological Peds Health History Neurological, Other Medical History: Grandparents, Stroke Oncologic Peds Health History Non-Hodgkin's Lymphoma Health Hx: Mother Cardiovascular Peds History High Blood Pressure Medical History: Mother, FAM HX HTN Endocrine/Metabolic Past Med Hx Diabetes Medical History: Grandparents Endocrine, Other Medical History: Mother, Hypothyroid Procedure History: . NONE. Social History . Current Tobacco Usage: Denies Alcohol Use Alcohol Use: Not applicable due to age Physical Examination VS/Measurements Vital Signs 02/11/2011 11:52 Temperature Tympanic 36.2 DegC Peripheral Pulse Rate 86 bpm Respiratory Rate 16 br/min Systolic Blood Pressure 100 mmHg Diastolic Blood Pressure 70 mmHg , Measurements from flowsheet : Measurements 02/11/2011 11:52 Weight 91.6 kg Documented vital signs: Blood Pressure ( Systolic 100 mmHg, Diastolic 70 mmHg ), Pulse ( 86 beats per min ), Respiration ( 16 breaths/ min ), Temperature ( Tympanic 36.2 degrees Celsius ), Oxygen saturation 98 %, Measured weight ( 91.6 kgs ) General: Alert and oriented, No acute distress. Eye: Pupils are equal, round and reactive to light, Extraocular movements are intact. HENT: Tympanic membranes are clear. Head: Bilateral, Frontal region, Maxilla, No tenderness. Nose: Discharge ( Moderate amount, Clear ). Throat: Pharynx ( post-nasal drip ). Neck: Lymph nodes: Anterior triangle, Lymphadenopathy, [place]. Respiratory: Breath sounds are equal. Pattern: Prolonged, Expiratory phase. Breath sounds: Bilateral, Rhonchi present, Wheezes present. Cardiovascular: Normal rate, Regular rhythm, No murmur. Integumentary: Warm, Dry, [place], Intact, No rash. Impression and Plan Diagnosis Acute bronchitis (ICD9 466.0). Upper respiratory infection (ICD9 465.9). Course: Worsening. Plan PowerOrders. Pharmacy: Xopenex 1.25 mg/3 mL inhalation solution (Ordered): 1.25 mg, 3 mL, NEB, TID, 1 BX NEBULIZER with tubing and mouthpiece (Ordered): See Instructions, use every 4-6 hrs prn., 1 units Promethazine with Codeine oral syrup (Ordered): 5 mL, PO, Q4H, 300 mL, PRN Augmentin 875 mg oral tablet (Ordered): 1 Tab, PO, Q12H, 20 Tab PowerOrders. Evaluation and Management: Office Visit Level 3 Est - [id number] (Completed): 02/11/2011 12:48 Counseled: Patient, Family, Regarding diagnosis, Regarding treatment, Regarding medications. Patient Instructions: f/u prn. 02/11/2011 [facility] Office/ Clinic Notes Office/Clinic Notes Patient: KATE SAGE Age: 15 years Sex: Female : 1995 Associated Diagnoses: None Author: Annabella Ventura Chief Complaint patient presents with cough, nasal congestion, History of Present Illness The patient presents with cough. The onset was beginning 1 weeks ago. The duration is 1 weeks. Quality croupy. The symptom occurs intermittently. The course is worsening. The effect on daily activities is change in sleeping patterns. Associated symptoms: cough, productive, shortness of breath, wheeze, nasal congestion, chest tightness, yellow colors mucus and cough is keeping patient up at night. Review of Systems Constitutional: Fatigue. Ear/Nose/Mouth/Throat: Nasal congestion. Respiratory: Shortness of breath, Cough, Sputum production. Gastrointestinal: No nausea, No diarrhea. Health Status Allergies: . Allergic Reactions (Selected) Severity not Documented Zithromax- Rash. Current medications: . Prescriptions and Home Medications APAP/dextromethorphan/doxylamine (Nyquil Cold & Flu oral capsule), 2 Cap, PO, Q6H Histories Past Medical History: . No active or resolved past medical history items have been selected or recorded. Family History: . Neurological Peds Health History Neurological, Other Medical History: Grandparents, Stroke Oncologic Peds Health History Non-Hodgkin's Lymphoma Health Hx: Mother Cardiovascular Peds History High Blood Pressure Medical History: Mother, FAM HX HTN Endocrine/Metabolic Past Med Hx Diabetes Medical History: Grandparents Endocrine, Other Medical History: Mother, Hypothyroid Procedure History: . NONE. Physical Examination VS/Measurements Documented vital signs: Blood Pressure ( Systolic 100 mmHg, Diastolic 70 mmHg ), Pulse ( 86 beats per min ), Respiration ( 16 breaths/ min ), Temperature ( Tympanic 36.2 degrees Celsius ), Oxygen saturation 98 %, Measured weight ( 91.6 kgs ) 02/11/2011 [facility] Office/ Clinic Notes Office/Clinic Notes Patient: KATE SAGE Age: 15 years Sex: Female : 1995 Associated Diagnoses: None Author: Mehran Botello DO Visit Information Visit type: Scheduled follow-up. Source of history: Self. Chief Complaint f/u from shoulder injury History of Present Illness The patient presents with shoulder pain. The location is the right shoulder. The onset was beginning 4 weeks ago. The duration is 3 weeks. There were relieving factors including ice application, medication and rest. It is described as aching and dull. The severity is 0 / 10 on the severity scale and patient states she is having no pain whatsoever. The course is resolved. patient here for a release to play sports. Injured her shoulder 4 weeks ago & saw Dr. Padilla (Ortho) in ; was told she had a nickel sized blood pocket under scapula & to be out 4-6 weeks. Patient couldn't get back into ortho until end of next week & she was wanting to play in games this weekend. Says she has no pain & is functioning normally for the past week.. Review of Systems Musculoskeletal: Joint pain. Health Status Allergies: . Allergic Reactions (Selected) Severity not Documented Zithromax- Rash. Current medications: . Prescriptions and Home Medications ibuprofen, PRN: as needed for fever levalbuterol (Xopenex HFA 45 mcg/inh inhalation aerosol with adapter), 2 Puff(s) , INH, Q6H, 1 INH, PRN: as needed for wheezing Resp-Levalbuterol (Xopenex 1.25 mg/3 mL inhalation solution), 1.25 mg, 3 mL, NEB , Q4H, 96 EA, PRN: as needed for wheezing Histories Past Medical History: . No active or resolved past medical history items have been selected or recorded. Family History: . Neurological Peds Health History Neurological, Other Medical History: Grandparents, Stroke Oncologic Peds Health History Non-Hodgkin's Lymphoma Health Hx: Mother Cardiovascular Peds History High Blood Pressure Medical History: Mother, FAM HX HTN Endocrine/Metabolic Past Med Hx Diabetes Medical History: Grandparents Endocrine, Other Medical History: Mother, Hypothyroid Procedure History: . NONE. Social History . Current Tobacco Usage: Denies Alcohol Use Alcohol Use: Not applicable due to age Physical Examination VS/Measurements Vital Signs 01/25/2011 08:26 Temperature Tympanic 36.6 DegC Peripheral Pulse Rate 71 bpm Respiratory Rate 16 br/min Systolic Blood Pressure 130 mmHg Diastolic Blood Pressure 82 mmHg Documented vital signs: Blood Pressure ( Systolic 130 mmHg, Diastolic 82 mmHg ), Pulse ( 71 beats per min ), Respiration ( 16 breaths/ min ), Temperature ( Tympanic 36.6 degrees Celsius ), Oxygen saturation 100 %, Measured weight ( 93.2 kgs ) General: Alert and oriented, No acute distress. Musculoskeletal: Normal range of motion, Normal strength, No tenderness, No swelling, No deformity, exam of right scapular area NL. Integumentary: Warm, Dry, [place]. Neurologic: Alert, Oriented, Normal sensory, Normal motor function. Psychiatric: Cooperative, Appropriate mood & affect, Normal judgment. Review / Management Documentation reviewed: Records from referring facility. Course: Improving. Impression and Plan Diagnosis Pain in Scapula (ICD9 719.41). Course: Improving. Plan PowerOrders. Evaluation and Management: Office Visit Level 3 Est - [id number] (Completed): 01/25/2011 09:39 Counseled: Patient, Family, Regarding diagnosis. Patient Instructions: will review MRI report, it has been 4 weeks, see no reason pt can't resume activity. 01/25/2011 [facility] Office/ Clinic Notes Office/Clinic Notes Patient: KATE SAGE Age: 15 years Sex: Female : 1995 Associated Diagnoses: None Author: Mehran Botello DO Visit Information Visit type: Scheduled follow-up. Source of history: Self. Chief Complaint f/u from shoulder injury 01/08/11 History of Present Illness The patient presents with shoulder pain. The location is the right shoulder. The onset was beginning 3 weeks ago. The duration is 3 weeks. There were relieving factors including ice application, medication and rest. It is described as aching and dull. The severity is 0 / 10 on the severity scale and patient states she is having no pain whatsoever. The course is resolved. patient here for a release to play sports. Injured her shoulder 3 weeks ago & saw Dr. Padilla (Ortho) in ; was told she had a nickel sized blood pocket under scapula & to be out 4-6 weeks. Patient couldn't get back into ortho until end of next week & she was wanting to play in games this weekend. Says she has no pain & is functioning normally for the past week.. Review of Systems Musculoskeletal: Joint pain. Health Status Allergies: . Allergic Reactions (Selected) Severity not Documented Zithromax- Rash. Current medications: . Prescriptions and Home Medications ibuprofen, PRN: as needed for fever levalbuterol (Xopenex HFA 45 mcg/inh inhalation aerosol with adapter), 2 Puff(s) , INH, Q6H, 1 INH, PRN: as needed for wheezing Resp-Levalbuterol (Xopenex 1.25 mg/3 mL inhalation solution), 1.25 mg, 3 mL, NEB , Q4H, 96 EA, PRN: as needed for wheezing Histories Past Medical History: . No active or resolved past medical history items have been selected or recorded. Family History: . Neurological Peds Health History Neurological, Other Medical History: Grandparents, Stroke Oncologic Peds Health History Non-Hodgkin's Lymphoma Health Hx: Mother Cardiovascular Peds History High Blood Pressure Medical History: Mother, FAM HX HTN Endocrine/Metabolic Past Med Hx Diabetes Medical History: Grandparents Endocrine, Other Medical History: Mother, Hypothyroid Procedure History: . NONE. Social History . Current Tobacco Usage: Denies Alcohol Use Alcohol Use: Not applicable due to age Physical Examination VS/Measurements Vital Signs 01/25/2011 08:26 Temperature Tympanic 36.6 DegC Peripheral Pulse Rate 71 bpm Respiratory Rate 16 br/min Systolic Blood Pressure 130 mmHg Diastolic Blood Pressure 82 mmHg Documented vital signs: Blood Pressure ( Systolic 130 mmHg, Diastolic 82 mmHg ), Pulse ( 71 beats per min ), Respiration ( 16 breaths/ min ), Temperature ( Tympanic 36.6 degrees Celsius ), Oxygen saturation 100 %, Measured weight ( 93.2 kgs ) General: Alert and oriented, No acute distress. Musculoskeletal: Normal range of motion, Normal strength, No tenderness, No swelling, No deformity, exam of right scapular area NL. Integumentary: Warm, Dry, [place]. Neurologic: Alert, Oriented, Normal sensory, Normal motor function. Psychiatric: Cooperative, Appropriate mood & affect, Normal judgment. Review / Management Documentation reviewed: Records from referring facility. Course: Improving. Impression and Plan Diagnosis Pain in Scapula (ICD9 719.41). Course: Improving. Plan PowerOrders. Evaluation and Management: Office Visit Level 3 Est - 41894 (Completed): 01/25/2011 09:39 Counseled: Patient, Family, Regarding diagnosis. Patient Instructions: will reviewed MRI report dated 01/11/11, it has been 3 weeks, see no reason to clear her at this time, spoke with her transition coach/agrees, Kate will need to get clearance from Dr Padilla . 01/25/2011 [facility] Office/ Clinic Notes Office/Clinic Notes Patient: KATE SAGE Age: 15 years Sex: Female : 1995 Associated Diagnoses: None Author: Ariadna Wright LPN Visit Information Visit type: Scheduled follow-up. Source of history: Self. Chief Complaint f/u from shoulder injury History of Present Illness The patient presents with shoulder pain. The location is the right shoulder. The onset was beginning 4 weeks ago. The duration is 3 weeks. There were relieving factors including ice application, medication and rest. It is described as aching and dull. The severity is 0 / 10 on the severity scale and patient states she is having no pain whatsoever. The course is resolved. patient here for a release to play sports. Injured her shoulder 4 weeks ago & saw Dr. Padilla (Ortho) in ; was told she had a nickel sized blood pocket under scapula & to be out 4-6 weeks. Patient couldn't get back into ortho until end of next week & she was wanting to play in games this weekend. Says she has no pain & is functioning normally for the past week.. Review of Systems Musculoskeletal: Joint pain. Health Status Allergies: . Allergic Reactions (Selected) Severity not Documented Zithromax- Rash. Current medications: . Prescriptions and Home Medications ibuprofen, PRN: as needed for fever levalbuterol (Xopenex HFA 45 mcg/inh inhalation aerosol with adapter), 2 Puff(s) , INH, Q6H, 1 INH, PRN: as needed for wheezing Resp-Levalbuterol (Xopenex 1.25 mg/3 mL inhalation solution), 1.25 mg, 3 mL, NEB , Q4H, 96 EA, PRN: as needed for wheezing Histories Past Medical History: . No active or resolved past medical history items have been selected or recorded. Family History: . Neurological Peds Health History Neurological, Other Medical History: Grandparents, Stroke Oncologic Peds Health History Non-Hodgkin's Lymphoma Health Hx: Mother Cardiovascular Peds History High Blood Pressure Medical History: Mother, FAM HX HTN Endocrine/Metabolic Past Med Hx Diabetes Medical History: Grandparents Endocrine, Other Medical History: Mother, Hypothyroid Procedure History: . NONE. Social History . No social history found. Physical Examination VS/Measurements Documented vital signs: Blood Pressure ( Systolic 130 mmHg, Diastolic 82 mmHg ), Pulse ( 71 beats per min ), Respiration ( 16 breaths/ min ), Temperature ( Tympanic 36.6 degrees Celsius ), Oxygen saturation 100 %, Measured weight ( 93.2 kgs ) 01/25/2011 [facility] Office/ Clinic Notes Office/Clinic Notes Patient: KATE SAGE Age: 14 years Sex: Female : 1995 Associated Diagnoses: None Author: Irish Remy DO Chief Complaint Pt has edematous, papular rash on right shoulder extending into axilla. Pt used Biofreeze Friday, played softball Friday, and the rash came up Friday. Pt has seen actuarial director due to sensitivities recently. Pt went to [facility] Urgent care yesterday. Was given triamcenalone. History of Present Illness The patient presents with rash. The location is the right side of the chest and the right upper extremity. The onset was sudden and beginning 4 days ago. The duration is 4 days. There were exacerbating factors including Possibly biofreeze.. It is characterized by color (pink in color, red in color) , an appearance of hives and mottled. The symptom occurs constantly. The course is worsening. Associated symptoms itching swollen lymph glands. tac cream no help. Review of Systems Constitutional: No fever, No chills. Gastrointestinal: No nausea, No vomiting. Integumentary: Rash. All other systems reviewed negative Health Status Allergies: . Allergic Reactions (Selected) Severity not Documented Zithromax- Rash. Current medications: . Prescriptions and Home Medications ibuprofen, PRN: as needed for fever levalbuterol (Xopenex HFA 45 mcg/inh inhalation aerosol with adapter), 2 Puff(s) , INH, Q6H, 1 INH, PRN: as needed for wheezing Resp-Levalbuterol (Xopenex 1.25 mg/3 mL inhalation solution), 1.25 mg, 3 mL, NEB , Q4H, 96 EA, PRN: as needed for wheezing Histories Past Medical History: . No active or resolved past medical history items have been selected or recorded. Family History: . Neurological Peds Health History Neurological, Other Medical History: Grandparents, Stroke Oncologic Peds Health History Non-Hodgkin's Lymphoma Health Hx: Mother Cardiovascular Peds History High Blood Pressure Medical History: Mother, FAM HX HTN Endocrine/Metabolic Past Med Hx Diabetes Medical History: Grandparents Endocrine, Other Medical History: Mother, Hypothyroid Procedure History: . NONE. Social History . No social history found. Physical Examination VS/Measurements Vital Signs 08/31/2010 13:55 Temperature Tympanic 36.7 DegC Peripheral Pulse Rate 80 bpm Respiratory Rate 18 br/min Systolic Blood Pressure 110 mmHg Diastolic Blood Pressure 76 mmHg , Measurements from flowsheet : Measurements 08/31/2010 13:55 Height 168 cm Weight 93.3 kg Documented vital signs: Blood Pressure ( Systolic 110 mmHg, Diastolic 76 mmHg ), Pulse ( 80 beats per min ), Respiration ( 18 breaths/ min ), Temperature ( Tympanic 36.7 degrees Celsius ), Oxygen saturation 98 %, Measured height ( 168 cms ), Measured weight ( 93.3 kgs ) General: Alert and oriented, No acute distress. Respiratory: Respirations are non-labored. Integumentary: rt arm with prominent swelling and erythema over deltoid and upper arm extending into rt axilla. no flucutuance or drainage. warm to touch. some vesicular record changer assembler deltoid. linear erythematous 2 cm skin change to rt foerarm with vesicular change. . Integumentary exam: . Review / Management Documentation reviewed: urgent care notes from [facility]. . Impression and Plan Diagnosis Contact dermatitis (ICD9 692.9). Plan PowerOrders. Pharmacy: predniSONE 20 mg oral tablet (Ordered): See Instructions, 3 tabs daily for 3 days, 2 tabs daily for 3 days, 1 tab daily for 3 days, 18 Tab methylprednisolone (Ordered): 160 mg, IM, X 1 DOSE dexamethasone (Ordered): 10 mg, IM, X 1 DOSE Clinic Charge: Depo-Medrol 160mg -Clinic (Ordered): 2, 08/31/2010 14:13 Admin SubQ or IM Injection -Clinic (Ordered): 08/31/2010 14:13 Decadron Phosphate 10 mg -Clinic (Ordered): , 08/31/2010 14:13 Admin SubQ or IM Injection -Clinic (Ordered): 08/31/2010 14:13 Clinic Careset: Depo-Medrol 160mg Careset -Clinic (Ordered) Decadron 10mg Careset -Clinic (Ordered) PowerOrders. Evaluation and Management: Office Visit Level 4 Est - 96593 (Completed): 08/31/2010 14:28 Counseled: Patient, Regarding diagnosis, Regarding treatment, Regarding medications. Patient Instructions: f/u prn. 08/31/2010 [facility] Office/ Clinic Notes Office/Clinic Notes Patient: KATE SAGE Age: 14 years Sex: Female : 1995 Associated Diagnoses: None Author: Adina Flores LPN Chief Complaint Pt has edematous, papular rash on right shoulder extending into axilla. Pt used Biofreeze Friday, played softball Friday, and the rash came up Friday. Pt has seen actuarial director due to sensitivities recently. Pt went to [facility] Urgent care yesterday. Was given triamcenalone. History of Present Illness The patient presents with rash. The location is the right side of the chest and the right upper extremity. The onset was sudden and beginning 4 days ago. The duration is 4 days. There were exacerbating factors including Possibly biofreeze.. It is characterized by color (pink in color, red in color) , an appearance of hives and mottled. The symptom occurs constantly. The course is worsening. Associated symptoms itching swollen lymph glands. Review of Systems Integumentary: Rash. All other systems reviewed negative Health Status Allergies: . Allergic Reactions (Selected) Severity not Documented Zithromax- Rash. Current medications: . Prescriptions and Home Medications ibuprofen, PRN: as needed for fever levalbuterol (Xopenex HFA 45 mcg/inh inhalation aerosol with adapter), 2 Puff(s) , INH, Q6H, 1 INH, PRN: as needed for wheezing Resp-Levalbuterol (Xopenex 1.25 mg/3 mL inhalation solution), 1.25 mg, 3 mL, NEB , Q4H, 96 EA, PRN: as needed for wheezing Histories Past Medical History: . No active or resolved past medical history items have been selected or recorded. Family History: . Neurological Peds Health History Neurological, Other Medical History: Grandparents, Stroke Oncologic Peds Health History Non-Hodgkin's Lymphoma Health Hx: Mother Cardiovascular Peds History High Blood Pressure Medical History: Mother, FAM HX HTN Endocrine/Metabolic Past Med Hx Diabetes Medical History: Grandparents Endocrine, Other Medical History: Mother, Hypothyroid Procedure History: . NONE. Social History . No social history found. Physical Examination VS/Measurements Documented vital signs: Blood Pressure ( Systolic 110 mmHg, Diastolic 76 mmHg ), Pulse ( 80 beats per min ), Respiration ( 18 breaths/ min ), Temperature ( Tympanic 36.7 degrees Celsius ), Oxygen saturation 98 %, Measured height ( 168 cms ), Measured weight ( 93.3 kgs ) 08/31/2010 [facility] MINDY Ferritin 29 ng/mL 3 - 105 06/01/2010 N [facility] FE %Saturation 17 % 10 - 48 06/01/2010 N This result is equivalent to % transferrin saturation.
[facility] DX Ribs Lt W/Chest DX Ribs Lt W/ Chest KATE SAGE UNILATERAL LEFT RIB SERIES WITH CHEST X-RAY INDICATION: Knot under left breast. FINDINGS: The lungs are clear bilaterally. No obvious lytic lesion or fracture is identified. The bony thorax on the left appears intact. The heart size is normal. The CP angles are sharp. IMPRESSION: Unremarkable unilateral left rib series. Final Report
Dictated By: Hiren Wilkes MD
Signed By : Hiren Wilkes MD
Signed Dt/tm: 06/01/2010 13:50
Transcribed By: BSB
Transcribed Dt/tm: 06/01/2010 13:16</br> Clinical History Current History Lt knot under breast since Feb 2010, painful to the touch, no known injury Previous History/Surgery no hx 06/01/2010 Final Report Dictated By: Hiren Wilkes MD Signed By: Hiren Wilkes MD Signed Dt/tm: 06/01/2010 13:50 Transcribed By: LARISSAB Transcribed Dt/tm: 06/01/2010 13:16 [facility] Care Office/Clinic Notes Office/Clinic Notes Patient: KATE SAGE Age: 14 years Sex: Female : [birth year] Associated Diagnoses: None Author: Irish Remy DO Chief Complaint Left side rib pain History of Present Illness The patient presents with Rib pain. The location is the left side of the chest. The onset was Started in January or February. It is described as Sharp , discomforting and sometimes painful to touch along edge of rib cage.. The severity is moderate, 4 / 10 on the severity scale and Patient rates pain as a 7 at its worst. The symptom occurs intermittently. The course is unchanged. The effect on daily activities is change in activity level. Since fall(Jan) with uri pain has been intermittent with variable intensity. 2 ibuprofen yesterday no help. Yesterday lasted all day. follow up on iron--has been taking 65mg iron supp plus 16 mg in mv. Review of Systems Constitutional: Negative. Respiratory: No shortness of breath, No cough. Gastrointestinal: Negative. Musculoskeletal: Left side rib pain. Health Status Allergies: . Allergic Reactions (Selected) Severity not Documented Zithromax- Rash. Current medications: . Prescriptions and Home Medications ibuprofen, PRN: as needed for fever levalbuterol (Xopenex HFA 45 mcg/inh inhalation aerosol with adapter), 2 Puff(s) , INH, Q6H, 1 INH, PRN: as needed for wheezing Resp-Levalbuterol (Xopenex 1.25 mg/3 mL inhalation solution), 1.25 mg, 3 mL, NEB , Q4H, 96 EA, PRN: as needed for wheezing Histories Past Medical History: . No active or resolved past medical history items have been selected or recorded. Family History: . Neurological Peds Health History Neurological, Other Medical History: Grandparents, Stroke Oncologic Peds Health History Non-Hodgkin's Lymphoma Health Hx: Mother Cardiovascular Peds History High Blood Pressure Medical History: Mother, FAM HX HTN Endocrine/Metabolic Past Med Hx Diabetes Medical History: Grandparents Endocrine, Other Medical History: Mother, Hypothyroid Procedure History: . NONE. Social History . No social history found. Physical Examination VS/Measurements Vital Signs 06/01/10 10:56 Temperature Tympanic 36.6 DegC Peripheral Pulse Rate 86 bpm Respiratory Rate 18 br/min Systolic Blood Pressure 118 mmHg Diastolic Blood Pressure 78 mmHg , Measurements from flowsheet : Measurements 06/01/10 10:56 Weight 93.0 kg Documented vital signs: Blood Pressure ( Systolic 118 mmHg, Diastolic 78 mmHg ), Pulse ( 86 beats per min ), Respiration ( 18 breaths/ min ( At rest ) ), Temperature ( Tympanic 36.6 degrees Celsius ), Oxygen saturation 97 %, Measured weight ( 93.0 kgs ) General: Alert and oriented, No acute distress. Respiratory: Lungs are clear to auscultation, Respirations are non-labored, Breath sounds are equal. Cardiovascular: Normal rate, Regular rhythm, No murmur, left lower rib chest wall with tenderness to palpation laterally. , no mass. Gastrointestinal: Soft, Non-tender, Non-distended. Musculoskeletal: . Integumentary: Warm, Dry, [place], No rash. Review / Management Radiology results X-ray, Left ribs plus chest, Reveals no acute disease process Impression and Plan Diagnosis Chest wall pain (ICD9 786.52). Plan PowerOrders. Radiology: DX Ribs Lt W/Chest (Ordered): 06/01/10 11:24 Routine, Rad Type, Chest wall pain , HC PowerOrders. Evaluation and Management: Office Visit Level 3 Est - 52672 (Completed): 06/01/10 11:57 Counseled: Patient, Regarding diagnosis, Regarding treatment, Regarding medications. Patient Instructions: f/u prn. 06/01/2010 [facility] Office/ Clinic Notes Office/Clinic Notes Patient: KATE SAGE Age: 14 years Sex: Female : [birth year] Associated Diagnoses: None Author: Poppy Gandhi Chief Complaint Left side rib pain History of Present Illness The patient presents with Rib pain. The location is the left side of the chest. The onset was Started in January or February. It is described as Sharp , discomforting and sometimes painful to touch along edge of rib cage.. The severity is moderate, 4 / 10 on the severity scale and Patient rates pain as a 7 at its worst. The symptom occurs intermittently. The course is unchanged. The effect on daily activities is change in activity level. Review of Systems Musculoskeletal: Left side rib pain. Health Status Allergies: . Allergic Reactions (Selected) Severity not Documented Zithromax- Rash. Current medications: . Prescriptions and Home Medications budesonide (Pulmicort Respules), See Instructions, NEB albuterol (albuterol 90 mcg/inh inhalation aerosol with adapter), 2 Puff(s), INH , q4-6h, 1 EA, 0, PRN ibuprofen, PRN: as needed for fever amoxicillin-clavulanate (Augmentin 875 mg oral tablet), 1 Tab, PO, Q12H, 20 Tab fluticasone nasal (Veramyst 27.5 mcg/inh nasal spray), 2 [place], each nostril, Q24H, 1 BT levalbuterol (Xopenex HFA 45 mcg/inh inhalation aerosol with adapter), 2 Puff(s) , INH, Q6H, 1 INH, PRN: as needed for wheezing Resp-Levalbuterol (Xopenex 1.25 mg/3 mL inhalation solution), 1.25 mg, 3 mL, NEB , Q4H, 96 EA, PRN: as needed for wheezing Histories Past Medical History: . No active or resolved past medical history items have been selected or recorded. Family History: . Neurological Peds Health History Neurological, Other Medical History: Grandparents, Stroke Oncologic Peds Health History Non-Hodgkin's Lymphoma Health Hx: Mother Cardiovascular Peds History High Blood Pressure Medical History: Mother, FAM HX HTN Endocrine/Metabolic Past Med Hx Diabetes Medical History: Grandparents Endocrine, Other Medical History: Mother, Hypothyroid Procedure History: . NONE. Social History . No social history found. Physical Examination VS/Measurements Documented vital signs: Blood Pressure ( Systolic 118 mmHg, Diastolic 78 mmHg ), Pulse ( 86 beats per min ), Respiration ( 18 breaths/ min ( At rest ) ), Temperature ( Tympanic 36.6 degrees Celsius ), Oxygen saturation 97 %, Measured weight ( 93.0 kgs ) 06/01/2010 [facility] Care Vital Signs Encounters Procedures Plan of Care Social History Assessment and Plan Family History Value Date Source Advance Directives Order Name Results Value Date Source
--- OUTSIDE RECORDS SUMMARY | 2017-05-04 03:43 | XMS REPORT | Continuity of Care Document ---
Author Author [facility] Organization [facility] Address Unknown Phone Unavailable Allergies Active Description Code Type Severity Reaction Onset Reported/Identified Relationship to Patient Clinical Status Yes azithromycin [id number] Drug Allergy Unknown N/A 08/07/2014 Medications There is no data. Problems Date Dx Coded Attending Type Code Diagnosis Diagnosed By 08/07/2014 RENATA BANERJEE APRN Ot 692.4 CHEMICAL DERMATITIS NEC 10/26/2015 DEUCE BAPTISTE, LASHELL Randhawa Ot S43.431D SUPERIOR GLENOID LABRUM LESION OF RIGHT 10/26/2015 DEUCE BAPTISTE, LASHELL Randhawa Ot S43.432D SUPERIOR GLENOID LABRUM LESION OF LEFT S 10/29/2015 DEUCE BAPTISTE, LASHELL Randhawa Ot S43.431D SUPERIOR GLENOID LABRUM LESION OF RIGHT 10/29/2015 DEUCE BAPTISTE, LASHELL Randhawa Ot S43.432D SUPERIOR GLENOID LABRUM LESION OF LEFT S 11/21/2015 DEUCE BAPTISTE, LASHELL Randhawa Ot S43.431D SUPERIOR GLENOID LABRUM LESION OF RIGHT 11/21/2015 DEUCE BAPTISTE, LASHELL Randhawa Ot S43.432D SUPERIOR GLENOID LABRUM LESION OF LEFT S Procedures There is no data. Results There is no data. Encounters ACCT No. Visit Date/Time Discharge Status Pt. Type Provider Facility Loc./Unit Complaint [id number] 10/23/2015 11:54:00 10/23/2015 23:59:59 CLS Outpatient LASHELL TRIPATHI MD [facility] RAD [id number] 08/07/2014 22:23:00 08/07/2014 22:51:00 DIS Emergency RENATA BANERJEE APRN [facility] ER
[2017-05-04] MEDS ORDERED: FAMOTIDINE 20MG/2ML IV (PEPCID) IV STA (04:02)
[2017-05-04] MEDS ORDERED: methylPREDNISolone 125 MG (Solu-MEDROL) VIAL IV STA (04:02)
--- NOTE | 2017-05-04 04:09 | ED Integumentary General ---
General Chief Complaint: Allergic Reaction Stated Complaint: RASH Nursing Triage Note: PT TO ED 8 W/ C/O POSS ALLERGIC REACTION ONSET X1 1/2 DAYS. DENIES ANY KNOWN IRRITANT. HIVES NOTED TO FACE, NECK, ARMS ET CHEST. PT DOES REPORT SHE HAS TAKEN "A FORM OF BENADRYL" BUT NOTHING ELSE Source: patient History of Present Illness Time seen by provider: 03:57 Initial Comments C/O HIVES SINCE Friday05/02/17 VERY ITCHY RASH ON FACE, TRUNK AND ARMS SCALP IS STARTING TO ITCH WELL NO SWELLING ANYWHERE NO DIFFICULTY BREATHING, SWALLOWING OR TALKING NO NEW FOODS, PRODUCTS, MEDICATIONS OR EXPOSURES NO UNUSUAL STRESS, AND CLASSES ARE OVER PT TOOK 25 MG BENADRYL AT 0130 WITHOUT RELIEF ALSO APPLIED HYDROCORTISONE CREAM WITHOUT RELIEF PT IS [employer] ST[employer] FROM [place], [place] Allergies and Home Medications Allergies Coded Allergies: azithromycin (Unverified Allergy, Unknown, 08/07/14) Home Medications Citalopram Hydrobromide 10 Mg Tablet, 10 MG PO, (Reported) Prednisone 10 Mg Tablet, 30 MG PO DAILY for 3 Days Prescribed by: RENATA BANERJEE on 08/07/14 2680 [ Control] , (Reported) Constitutional: no symptoms reported EENTM: no symptoms reported Respiratory: no symptoms reported Cardiovascular: no symptoms reported Gastrointestinal: no symptoms reported Genitourinary: no symptoms reported Musculoskeletal: no symptoms reported Skin: see HPI Psychiatric/Neurological: No Symptoms Reported Endocrine: No Symptoms Reported Hematologic/Lymphatic: No Symptoms Reported Past Lglhffg-Hvksvu-Sznlzh Hx Patient Social History Alcohol Use: Occasionally Uses Recreational Drug Use: No Smoking Status: Never a Smoker Recent Foreign Travel: No Contact w/Someone Who Travel: No Recent Infectious Disease Expo: No Physical Abuse: No Sexual Abuse: No Mistreated: No Fear: No Immunizations Up To Date Tetanus Booster (TDap): Unknown Surgeries History of Surgeries: Yes (RIGHT SHOULDER LABRUM REPAIR) Surgeries: Adenoidectomy, Orthopedic, Tonsillectomy Respiratory History of Respiratory Disorde: No Cardiovascular History of Cardiac Disorders: No Neurological History of Neurological Disord: No Reproductive System Hx Reproductive Disorders: No Sexually Transmitted Disease: No HIV/AIDS: No Female Reproductive Disorders: Denies Genitourinary History of Genitourinary Disor: No Gastrointestinal History of Gastrointestinal Di: No Musculoskeletal History of Musculoskeletal Dis: Yes (RIGHT SHOULDER LABRUM REPAIR) Endocrine History of Endocrine Disorders: No HEENT History of HEENT Disorders: No Cancer History of Cancer: No Psychosocial History of Psychiatric Problem: Yes Behavioral Health Disorders: Anxiety Suicide Risk Score: 0 Integumentary History of Skin or Integumenta: No Blood Transfusions History of Blood Disorders: No Adverse Reaction to a Blood Tr: No Physical Exam Vital Signs Vital Sign - Last 12Hours 05/04/17 03:46 Temp 98.7 Pulse 105 Resp 20 B/P (MAP) 185/92 (123) Pulse Ox 99 O2 Delivery Room Air Capillary Refill : Less Than 3 Seconds General Appearance: no apparent distress, obese HEENT: PERRL/EOMI, normal ENT inspection, pharynx normal Neck: normal inspection Cardiovascular: regular rate, rhythm, other (NO INTRA-ORAL SWELLING) Respiratory: chest non-tender, normal breath sounds, no respiratory distress, no accessory muscle use Gastrointestinal: normal bowel sounds, soft Back: normal inspection Extremities: normal inspection, no pedal edema, normal capillary refill 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 PALMS AND SCALP SPARED. NONE NOTED ON LEGS. ) Progress/Results/Core Measures Results/Orders My Orders Orders - IRVIN RIBERA DO Saline Lock/Iv-Start (05/04/17 04:02) Methylprednisolone Sod Succ (Solu-Medrol (05/04/17 04:02) Famotidine Injection (Pepcid Injection) (05/04/17 04:02) Vital Signs/I&O Vital Sign - Last 12Hours 05/04/17 03:46 Temp 98.7 Pulse 105 Resp 20 B/P (MAP) 185/92 (123) Pulse Ox 99 O2 Delivery Room Air Blood Pressure Mean: 123 Progress Note : Progress Note ITCHING RESOLVED AND RASH NEARLY COMPLETELY GONE WITH MEDICATIONS Departure Impression Impression: Primary Impression: Hives of unknown origin Disposition: 01 HOME, SELF-CARE Condition: Improved Departure-Patient Inst. Referrals: CHAD MCCRAY MD Patient Instructions: Hives (DC) Add. Discharge Instructions: LOTS OF FLUIDS CLARITIN 10 MG IN AM, BENADRYL 50 MG IN PM AND ITCHING PEPCID 40 MG DAILY FOR RASH AND ITCHING RETURN TO ER IF SYMPTOMS WORSEN OR IF NO IMPROVEMENT IN 1-2 DAYS All discharge instructions reviewed with patient and/or family. Voiced understanding. Scripts Prednisone (Prednisone) 10 Mg Tab 40 MG PO DAILY, #12 TAB Prov: IRVIN RIBERA DO 05/04/17 IRVIN RIBERA DO May 04, 2017 04:09
[2017-05-04] MEDS ORDERED: PRD10T PO (05:15)
[2017-05-04 05:23] VITALS: BP 171/88
== END 2017-05-04 05:23 | disposition home or self-care (01) ==
LOC: EDUNIT# 03:35 → ER 03:38
DX: L50.9 Urticaria, unspecified (principal); F41.9 Anxiety disorder, unspecified; Z90.89 Acquired absence of other organs